=== PATIENT | female | born 1940 | race African-American/Black ===

== ENCOUNTER → 2016-04-17 | Outpatient (CLI) | payer MEDICARE ==
[2016-04-17 11:35] LABS: ABSOLUTE BASOPHILS # (AUTO) 0.1 10^3/uL (0.0-0.2); ABSOLUTE EOSINOPHILS # (AUTO) 0.2 10^3/uL (0.0-0.6); ABSOLUTE LYMPHOCYTES (AUTO) 0.5 10^3/uL (0.5-4.7); ABSOLUTE MONOCYTES (AUTO) 0.4 10^3/uL (0.1-1.4); ABSOLUTE NEUT (AUTO) 2.6 10^3/uL (1.7-8.2); BASOPHILS % (AUTO) 1.8 % (0-2); EOSINOPHILS % (AUTO) 5.6 % (0-6); HEMATOCRIT 35.9 % (36.0-47.0); HEMOGLOBIN 11.9 g/dL (12.0-15.5); HGB HCT DIFFERENCE -0.2; LYMPHOCYTES % (AUTO) 14.4 % (13-45); MEAN CORPUSCULAR HEMOGLOBIN 29.3 pg (27.0-33.4); MEAN CORPUSCULAR HGB CONC 33.3 g/dL (32.0-36.0); MEAN CORPUSCULAR VOLUME 88 fl (80-97); MONOCYTES % (AUTO) 9.9 % (3-13); RED BLOOD COUNT 4.08 10^6/uL (3.72-5.28); RED CELL DISTRIBUTION WIDTH 16.4 % (11.5-14.0); SEGMENTED NEUTROPHILS % (AUTO) 68.3 % (42-78); WHITE BLOOD COUNT 3.7 10^3/uL (4.0-10.5)
[2016-04-17 11:56] LABS: ALBUMIN 4.3 g/dL (3.5-5.0); ANION GAP 13 (5-19); BLOOD UREA NITROGEN 58 mg/dL (7-20); CALCIUM 9.8 mg/dL (8.4-10.2); CARBON DIOXIDE 22 mmol/L (22-30); CHLORIDE 106 mmol/L (98-107); CREATININE RESULT 1.89 mg/dL (0.52-1.25); GLUCOSE 98 mg/dL (75-110); PHOSPHORUS 4.7 mg/dL (2.5-4.5); POTASSIUM 4.5 mmol/L (3.6-5.0); SODIUM 141.2 mmol/L (137-145)
== END ==
LOC: OD 10:46
PROVIDERS: ATTEND Internal Medicine Nephrology
DX: N18.3 Chronic kidney disease, stage 3 (moderate) (principal); D50.9 Iron deficiency anemia, unspecified; N25.81 Secondary hyperparathyroidism of renal origin; E53.8 Deficiency of other specified B group vitamins
CPT/HCPCS: 36415; 80048; 82040; 82306; 82570; 82607; 82728; 83540; 83550; 83970; 84100; 84156; 85025

== ENCOUNTER → 2016-09-19 | Outpatient (CLI) | payer MEDICARE, OTHER ==
[2016-09-19 09:46] LABS: ABSOLUTE BASOPHILS # (AUTO) 0.1 10^3/uL (0.0-0.2); ABSOLUTE EOSINOPHILS # (AUTO) 0.3 10^3/uL (0.0-0.6); ABSOLUTE LYMPHOCYTES (AUTO) 0.8 10^3/uL (0.5-4.7); ABSOLUTE MONOCYTES (AUTO) 0.4 10^3/uL (0.1-1.4); ABSOLUTE NEUT (AUTO) 2.5 10^3/uL (1.7-8.2); EOSINOPHILS % (AUTO) 6.8 % (0-6); HEMATOCRIT 34.7 % (36.0-47.0); HEMOGLOBIN 11.5 g/dL (12.0-15.5); HGB HCT DIFFERENCE -0.2; LYMPHOCYTES % (AUTO) 20.3 % (13-45); MEAN CORPUSCULAR HEMOGLOBIN 27.9 pg (27.0-33.4); MEAN CORPUSCULAR HGB CONC 33.1 g/dL (32.0-36.0); MEAN CORPUSCULAR VOLUME 84 fl (80-97); MONOCYTES % (AUTO) 10.8 % (3-13); RED BLOOD COUNT 4.11 10^6/uL (3.72-5.28); RED CELL DISTRIBUTION WIDTH 16.4 % (11.5-14.0); SEGMENTED NEUTROPHILS % (AUTO) 60.1 % (42-78); WHITE BLOOD COUNT 4.1 10^3/uL (4.0-10.5)
[2016-09-19 10:10] LABS: ANION GAP 15 (5-19); BLOOD UREA NITROGEN 83 mg/dL (7-20); CALCIUM 9.4 mg/dL (8.4-10.2); CARBON DIOXIDE 20 mmol/L (22-30); CHLORIDE 105 mmol/L (98-107); CREATININE RESULT 2.21 mg/dL (0.52-1.25); GLUCOSE 54 mg/dL (75-110); POTASSIUM 3.8 mmol/L (3.6-5.0); SODIUM 139.9 mmol/L (137-145)
[2016-09-19 11:11] LABS: URINE CREATININE 54.9 mg/dL (15-278); URINE PROTEIN 34.4 mg/dL (<12)
[2016-09-20 07:36] LABS: VITAMIN D 25-HYDROXY 36.8 ng/mL (30.0-100.0)
== END ==
LOC: OD 08:31
PROVIDERS: ATTEND Internal Medicine Nephrology
DX: N18.3 Chronic kidney disease, stage 3 (moderate) (principal); D63.1 Anemia in chronic kidney disease; E55.9 Vitamin D deficiency, unspecified; N25.81 Secondary hyperparathyroidism of renal origin
CPT/HCPCS: 36415; 80048; 82306; 82570; 82607; 83970; 84156; 85025

== ENCOUNTER → 2016-10-01 | Outpatient (CLI) | payer MEDICARE, OTHER ==
[2016-10-01 10:23] LABS: ABSOLUTE BASOPHILS # (AUTO) 0.1 10^3/uL (0.0-0.2); ABSOLUTE EOSINOPHILS # (AUTO) 0.2 10^3/uL (0.0-0.6); ABSOLUTE LYMPHOCYTES (AUTO) 0.7 10^3/uL (0.5-4.7); ABSOLUTE MONOCYTES (AUTO) 0.4 10^3/uL (0.1-1.4); ABSOLUTE NEUT (AUTO) 2.5 10^3/uL (1.7-8.2); BASOPHILS % (AUTO) 1.8 % (0-2); EOSINOPHILS % (AUTO) 5.1 % (0-6); HEMATOCRIT 34.7 % (36.0-47.0); HEMOGLOBIN 11.7 g/dL (12.0-15.5); HGB HCT DIFFERENCE 0.4; LYMPHOCYTES % (AUTO) 18.5 % (13-45); MEAN CORPUSCULAR HEMOGLOBIN 29.1 pg (27.0-33.4); MEAN CORPUSCULAR HGB CONC 33.9 g/dL (32.0-36.0); MEAN CORPUSCULAR VOLUME 86 fl (80-97); MONOCYTES % (AUTO) 10.4 % (3-13); RED BLOOD COUNT 4.03 10^6/uL (3.72-5.28); SEGMENTED NEUTROPHILS % (AUTO) 64.2 % (42-78); WHITE BLOOD COUNT 3.9 10^3/uL (4.0-10.5)
[2016-10-01 10:29] LABS: ALANINE AMINOTRANSFERASE 18 U/L (9-52); ALBUMIN 4.2 g/dL (3.5-5.0); ALKALINE PHOSPHATASE 76 U/L (38-126); ANION GAP 14 (5-19); ASPARTATE AMINO TRANSFERASE 18 U/L (14-36); BILIRUBIN,DIRECT 0.5 mg/dL (0.0-0.4); BILIRUBIN,TOTAL 0.7 mg/dL (0.2-1.3); BLOOD UREA NITROGEN 80 mg/dL (7-20); CALCIUM 9.5 mg/dL (8.4-10.2); CARBON DIOXIDE 20 mmol/L (22-30); CHLORIDE 106 mmol/L (98-107); Direct HDL 53 mg/dL (>40); GLUCOSE 94 mg/dL (75-110); POTASSIUM 4.3 mmol/L (3.6-5.0); TOTAL PROTEIN 7.5 g/dL (6.3-8.2); TRIGLYCERIDES 81 mg/dL (<150)
[2016-10-01 10:40] LABS: DIRECT LDL 81 mg/dL (<100)
[2016-10-03 11:39] LABS: CREATININE URINE 38.9 mg/dL (Not Estab.); MICROALBUMIN URINE 171.9 ug/mL (Not Estab.)
== END ==
LOC: OD 08:33
PROVIDERS: ATTEND Internal Medicine
DX: E11.9 Type 2 diabetes mellitus without complications (principal); I12.9 Hypertensive chronic kidney disease with stage 1 through stage 4 chronic kidney disease, or unspecified chronic kidney disease; N18.3 Chronic kidney disease, stage 3 (moderate); E78.5 Hyperlipidemia, unspecified; I25.10 Atherosclerotic heart disease of native coronary artery without angina pectoris; Z79.899 Other long term (current) drug therapy
CPT/HCPCS: 36415; 80053; 80061; 82043; 82306; 82570; 83036; 84443; 85025

== ENCOUNTER 2016-11-04 16:46 | Inpatient (IN) | payer MEDICARE ==
[2016-11-04] MEDS ORDERED: NORMAL SALINE 1000 ML 1,000 ML IV ONE ×2 (18:10→20:12)
[2016-11-04 18:55] LABS: ABSOLUTE BASOPHILS # (AUTO) 0.1 10^3/uL (0.0-0.2); ABSOLUTE EOSINOPHILS # (AUTO) 0.2 10^3/uL (0.0-0.6); ABSOLUTE LYMPHOCYTES (AUTO) 1.1 10^3/uL (0.5-4.7); ABSOLUTE MONOCYTES (AUTO) 0.8 10^3/uL (0.1-1.4); ABSOLUTE NEUT (AUTO) 4.8 10^3/uL (1.7-8.2); BASOPHILS % (AUTO) 0.9 % (0-2); EOSINOPHILS % (AUTO) 2.3 % (0-6); HEMATOCRIT 40.3 % (36.0-47.0); HEMOGLOBIN 13.8 g/dL (12.0-15.5); HGB HCT DIFFERENCE 1.1; LYMPHOCYTES % (AUTO) 15.3 % (13-45); MEAN CORPUSCULAR HEMOGLOBIN 29.4 pg (27.0-33.4); MEAN CORPUSCULAR HGB CONC 34.2 g/dL (32.0-36.0); MEAN CORPUSCULAR VOLUME 86 fl (80-97); MONOCYTES % (AUTO) 11.2 % (3-13); RED BLOOD COUNT 4.69 10^6/uL (3.72-5.28); RED CELL DISTRIBUTION WIDTH 16.1 % (11.5-14.0); SEGMENTED NEUTROPHILS % (AUTO) 70.3 % (42-78); WHITE BLOOD COUNT 6.9 10^3/uL (4.0-10.5)
[2016-11-04 19:05] LABS: PROTHROMBIN TIME 18.2 SEC (11.4-15.4)
[2016-11-04 19:06] LABS: PARTIAL THROMBOPLASTIN TIME 29.2 SEC (23.5-35.8)
--- NOTE | 2016-11-04 19:08 | RADIOLOGY REPORT (SQ) ---
EXAM DESCRIPTION: CT HEAD WITHOUT COMPLETED DATE/TIME: 11/04/2016 6:51 pm REASON FOR STUDY: ams knee pain fall COMPARISON: 01/22/2016. TECHNIQUE: Axial images acquired through the brain without intravenous contrast. Images reviewed wi th bone, brain and subdural windows. Images stored on PACS. All CT scanners at this facility use dose modulation, iterative reconstruction, and/or weight based d osing when appropriate to reduce radiation dose to as low as reasonably achievable (ALARA). [facility]: Dose Right [facility]: CareDose [facility]: Dose Right [facility]: Teradose 4D [facility]: [facility] RADIATION DOSE: Up-to-date CT equipment and radiation dose reduction techniques were employed. CTDIv ol: 64.6 mGy. DLP: 1292 mGy-cm.mGy. LIMITATIONS: None. FINDINGS: VENTRICLES: Prominent. CEREBRUM: No masses. No hemorrhage. No midline shift. Areas of low density in the white matter mos t likely due to chronic micro-vascular ischemic change. No evidence for acute infarction. CEREBELLUM: No masses. No hemorrhage. No alteration of density. No evidence for acute infarction. EXTRAAXIAL SPACES: Age-related involutional change. No fluid collections. No masses. ORBITS AND GLOBE: No intra- or extraconal masses. Normal contour of globe without masses. CALVARIUM: No fracture. PARANASAL SINUSES: No fluid or mucosal thickening. SOFT TISSUES: No mass or hematoma. OTHER: No other significant finding. IMPRESSION: CHRONIC CHANGES OF ATROPHY AND MICROVASCULAR ISCHEMIA. NO ACUTE PROCESS. TECHNICAL DOCUMENTATION: JOB ID: [id number] Quality ID # [id number]: Final reports with documentation of one or more dose reduction techniques (e.g., Au tomated exposure control, adjustment of the mA and/or kV according to patient size, use of iterative reconstruction technique) 2010 [employer]- All Rights Reserved
[2016-11-04 19:10] LABS: ALANINE AMINOTRANSFERASE 20 U/L (9-52); ALBUMIN 4.6 g/dL (3.5-5.0); ALKALINE PHOSPHATASE 75 U/L (38-126); ASPARTATE AMINO TRANSFERASE 27 U/L (14-36); BILIRUBIN,DIRECT 0.7 mg/dL (0.0-0.4); BILIRUBIN,TOTAL 0.9 mg/dL (0.2-1.3); BLOOD UREA NITROGEN 89 mg/dL (7-20); CALCIUM 10.1 mg/dL (8.4-10.2); CREATININE RESULT 2.68 mg/dL (0.52-1.25); GLUCOSE 59 mg/dL (75-110); POTASSIUM 3.3 mmol/L (3.6-5.0); TOTAL PROTEIN 7.9 g/dL (6.3-8.2)
[2016-11-04 19:13] LABS: AMORPHOUS SEDIMENT,URINE TRACE /HPF; APPEARANCE,URINE CLOUDY; BILIRUBIN,URINE NEGATIVE (NEGATIVE); GLUCOSE, URINE NEGATIVE (NEGATIVE); KETONES,URINE NEGATIVE (NEGATIVE); LEUKOCYTE ESTERASE,URINE LARGE (NEGATIVE); NITRITE,URINE NEGATIVE (NEGATIVE); PROTEIN,URINE NEGATIVE (NEGATIVE); URINE SPECIFIC GRAVITY 1.008; UROBILINOGEN,URINE NEGATIVE mg/dL (<2.0)
[2016-11-04] MEDS ORDERED: CEFTRIAXONE 1 GM/D5W RTU 1 GM/50 ML RTUPB IV ONE (19:17)
--- NOTE | 2016-11-04 19:17 | RADIOLOGY REPORT (SQ) ---
EXAM DESCRIPTION: CHEST SINGLE VIEW COMPLETED DATE/TIME: 11/04/2016 7:05 pm REASON FOR STUDY: ams knee pain fall COMPARISON: 02/14/2016. NUMBER OF VIEWS: One view. TECHNIQUE: Single frontal radiographic view of the chest acquired. LIMITATIONS: None. FINDINGS: LUNGS AND PLEURA: No opacities, masses or pneumothorax. No pleural effusion. MEDIASTINUM AND HILAR STRUCTURES: No masses. Contour normal. HEART AND VASCULAR STRUCTURES: Heart enlarged without failure. Normal vasculature. BONES: No acute findings. Chronic changes in the spine and shoulders. HARDWARE: None in the chest. OTHER: No other significant finding. IMPRESSION: HEART ENLARGED WITHOUT FAILURE. NO OTHER SIGNIFICANT RADIOGRAPHIC FINDING IN THE CHEST. TECHNICAL DOCUMENTATION: JOB ID: [id number] [employer]- All Rights Reserved
--- NOTE | 2016-11-04 19:18 | RADIOLOGY REPORT (SQ) ---
EXAM DESCRIPTION: KNEE LEFT 3 VIEWS COMPLETED DATE/TIME: 11/04/2016 7:05 pm REASON FOR STUDY: ams knee pain fall COMPARISON: 11/22/2015. NUMBER OF VIEWS: Two views. TECHNIQUE: AP and lateral radiographic images acquired of the left knee. LIMITATIONS: None. FINDINGS: MINERALIZATION: Normal. BONES: No acute fracture or dislocation. Intact prosthesis. No worrisome bone lesions. JOINT: No effusion. SOFT TISSUES: No soft tissue swelling. No radio-opaque foreign body. OTHER: No other significant finding. IMPRESSION: INTACT KNEE PROSTHESIS. NO ACUTE FINDINGS. TECHNICAL DOCUMENTATION: JOB ID: [id number] [employer]- All Rights Reserved
[2016-11-04 19:19] LABS: URINE BARBITURATES SCREEN NEGATIVE; URINE METHADONE SCREEN NEGATIVE; URINE OPIATES LOW NEGATIVE; URINE PHENCYCLIDINE SCREEN NEGATIVE
[2016-11-04 19:19] LABS: ANION GAP 19 (5-19); CARBON DIOXIDE 18 mmol/L (22-30); CHLORIDE 103 mmol/L (98-107); SODIUM 139.5 mmol/L (137-145)
--- NOTE | 2016-11-04 20:12 | ER Document Report ---
ED General - General Chief Complaint: Anxiety Stated Complaint: ANIEXTY Time Seen by Provider: 11/04/16 17:41 TRAVEL OUTSIDE OF THE [place] IN LAST 30 DAYS: No - HPI Patient complains to provider of: Altered mental status Notes: Patient coming in for evaluation of altered mental status. Patient has a history of dementia. According to family members at bedside who themselves are also poor historian patient has not been acting like herself over the last few days. Patient has not been compliant with her medication regimen consisting of Namenda blood pressure medications and antibiotic for urinary tract infection. Patient's current PCP is Dr. Cook. On my evaluation patient is crying requesting to go home. Patient does understand she is in the hospital however she is now alert to time or circumstances. - Related Data Allergies/Adverse Reactions: grapefruit [Grapefruit] Allergy (Intermediate, Verified 11/04/16 17:18) Rash, Swelling strawberry [[place]] Allergy (Intermediate, Verified 11/04/16 17:18) Rash, Swelling oxycodone [Oxycodone] Adverse Reaction (Intermediate, Verified 11/04/16 17:18) Change in behavior Home Medications: Current Home Medications Amlodipine Besylate [Norvasc 10 mg Tablet] 10 mg PO DAILY 11/04/16 [History] Cholecalciferol (Vitamin D3) [Vitamin D3 2000 unit Tablet] 2,000 units PO DAILY 11/04/16 [History] Citalopram Hydrobromide [Citalopram HBr] 10 mg PO DAILY 11/04/16 [History] Furosemide [Lasix 40 mg Tablet] 60 mg PO BID 11/04/16 [History] Hydralazine HCl 100 mg PO Q8 11/04/16 [History] Insulin Glargine,Hum.rec.anlog [Lantus Solostar] 25 units SQ QHS 11/04/16 [ History] Insulin Lispro [Humalog] See Protocol SQ AC 11/04/16 [History] Isosorbide Mononitrate [Imdur 60 mg Tablet.er] 60 mg PO DAILY 11/04/16 [History] Memantine HCl [Memantine HCl] 3 mg PO Q12 11/04/16 [History] Metoprolol Tartrate [Lopressor 50 mg Tablet] 25 mg PO Q12 11/04/16 [History] Omeprazole [Omeprazole] 20 mg PO DAILY 11/04/16 [History] Warfarin Sodium [Warfarin Sodium] 5 mg PO DAILY 11/04/16 [History] Past Medical History - Social History Smoking Status: Unknown if Ever Smoked Chew tobacco use (# tins/day): No Frequency of alcohol use: None Drug Abuse: None Family History: DM, Hypertension - Past Medical History Cardiac Medical History: Reports: Hx Atrial Fibrillation, Hx Congestive Heart Failure, Hx Heart Attack, Hx Hypercholesterolemia, Hx Hypertension Pulmonary Medical History: Denies: Hx Tuberculosis Endocrine Medical History: Reports: Hx Diabetes Mellitus Type 1, Hx Diabetes Mellitus Type 2 Renal/ Medical History: Reports: Hx End Stage Renal Disease GI Medical History: Reports: Hx Gastroesophageal Reflux Disease Musculoskeltal Medical History: Reports Hx Gout, Reports Hx Musculoskeletal Trauma Psychiatric Medical History: Reports: Hx Dementia, Hx Depression Past Surgical History: Reports: Hx Cholecystectomy, Hx Orthopedic Surgery - both knees, back - Immunizations Hx Diphtheria, Pertussis, Tetanus Vaccination: Yes Hx Pneumococcal Vaccination: 03/02/13 Review of Systems - Review of Systems -: Yes ROS unobtainable due to patient's medical condition - Dementia Physical Exam - Vital signs Vitals: Temp Pulse Resp BP Pulse Ox 98.2 F 65 18 134/56 H 100 11/04/16 17:40 11/04/16 17:40 11/04/16 17:40 11/04/16 17:40 11/04/16 17:40 Interpretation: Normal - General General appearance: Appears well, Alert - HEENT Head: Normocephalic, Atraumatic Eyes: Normal Pupils: PERRL - Respiratory Respiratory status: No respiratory distress Chest status: Nontender Breath sounds: Normal Chest palpation: Normal - Cardiovascular Rhythm: Regular Heart sounds: Normal auscultation Murmur: No - Abdominal Inspection: Normal Distension: No distension Bowel sounds: Normal Tenderness: Nontender Organomegaly: No organomegaly - Back Back: Normal, Nontender - Extremities General upper extremity: Normal inspection, Nontender, Normal color, Normal ROM , Normal temperature General lower extremity: Normal inspection, Nontender, Normal color, Normal ROM , Normal temperature, Normal weight bearing. No: Chase's sign - Neurological Neuro grossly intact: Yes Cognition: Confused Speech: Normal Motor strength normal: LUE, RUE, LLE, RLE Sensory: Normal - Psychological Associated symptoms: Normal affect, Normal mood - Skin Skin Temperature: Warm Skin Moisture: Dry Skin Color: Normal Course - Re-evaluation Re-evalutation: 11/04/16 23:00 Patient coming in for evaluation of altered mental status. Patient has a urinary tract infection patient's recent microbiology shows E. coli susceptible to ceftriaxone. Patient also has chronic renal insufficiency. Discussed with family members will admit the patient to the hospital staff. Discussed hospital staff agree with telemetry admission. - Vital Signs Vital signs: Temp Pulse Resp BP Pulse Ox 98.2 F 65 13 187/62 H 100 11/04/16 17:40 11/04/16 17:40 11/04/16 22:01 11/04/16 22:01 11/04/16 22:01 - Laboratory Result Diagrams: 11/04/16 18:10 11/04/16 18:10 Laboratory results interpreted by me: 11/04/16 11/04/16 11/04/16 18:09 18:10 18:10 RDW 16.1 H PT 18.2 H Potassium Carbon Dioxide BUN Creatinine Est GFR ( Amer) Est GFR (Non-Af Amer) Glucose Direct Bilirubin Ur Leukocyte Esterase LARGE H 11/04/16 18:10 RDW PT Potassium 3.3 L Carbon Dioxide 18 L BUN 89 H Creatinine 2.68 H Est GFR ( Amer) 21 L Est GFR (Non-Af Amer) 17 L Glucose 59 L Direct Bilirubin 0.7 H Ur Leukocyte Esterase Discharge - Discharge Clinical Impression: Acute encephalopathy, CKD (chronic kidney disease), stage III Dementia Qualifiers: Dementia type: unspecified type Dementia behavioral disturbance: without behavioral disturbance Qualified Code(s): F03.90 - Unspecified dementia without behavioral disturbance UTI (urinary tract infection) Qualifiers: Urinary tract infection type: site unspecified Condition: Good Disposition: ADMITTED INPATIENT Admitting Provider: [facility] Unit Admitted: Telemetry
--- NOTE | 2016-11-04 21:02 | RADIOLOGY REPORT (SQ) ---
EXAM DESCRIPTION: CHEST SINGLE VIEW COMPLETED DATE/TIME: 11/04/2016 8:52 pm REASON FOR STUDY: incr confusion COMPARISON: 11/04/2016. NUMBER OF VIEWS: One view. TECHNIQUE: Single frontal radiographic view of the chest acquired. LIMITATIONS: None. FINDINGS: LUNGS AND PLEURA: No opacities, masses or pneumothorax. No pleural effusion. MEDIASTINUM AND HILAR STRUCTURES: No masses. Contour normal. HEART AND VASCULAR STRUCTURES: Heart enlarged without failure. Normal vasculature. BONES: No acute findings. Chronic changes in the spine and shoulders. HARDWARE: None in the chest. OTHER: No other significant finding. IMPRESSION: HEART ENLARGED WITHOUT FAILURE. NO OTHER SIGNIFICANT RADIOGRAPHIC FINDING IN THE CHEST. TECHNICAL DOCUMENTATION: JOB ID: [id number] [employer]- All Rights Reserved
[2016-11-04 21:15] LABS: ADD ON TESTING BLD IN LAB ACKNOWLEDGE
[2016-11-04 21:29] LABS: MAGNESIUM 2.1 mg/dL (1.6-2.3)
[2016-11-04] MEDS ORDERED: GLUCAGON,HUMAN RECOMB 1 MG INJ IM PRN (21:51)
[2016-11-04] MEDS ORDERED: DEXTROSE 50%-WATER 25 GM/50 ML DISP.SYRIN IV PRN ×2 (21:51)
[2016-11-04] MEDS ORDERED: DEXTROSE 40% GEL 15 GM TUBE PO PRN ×2 (21:51)
[2016-11-04] MEDS ORDERED: RINGERS SOLUTION,LACTATED 1,000 ML IV PRN (21:54)
[2016-11-04] MEDS ORDERED: PROMETHAZINE HCL 25 MG TABLET PO PRN (21:57)
--- NOTE | 2016-11-04 22:42 | PDOC H&P ---
History of Present Illness Admission Date/PCP: 11/04/16 21:09 Dr. Cook Nephrology Cardiology Patient complains of: Increased confusion, decreased p.o. intake History of Present Illness: GEOFFREY PULIDO is a 76 year old -Luxembourger female with known underlying dementia, along with hypertension, atrial fibrillation, on Coumadin for same, history of congestive heart failure but no evidence of same on 2016 echocardiogram report, previous heart attack, prior stroke, with no known underlying residual aftereffects, type 1 diabetes mellitus, and depression, without suicidal or homicidal ideation, who presents to the emergency room for evaluation of above complaints. Patient has been discussed with emergency room physician who evaluated the patient. Patient is oriented to the fact that she is in the hospital, not sure which one, but is not sure why she is here, and was not sure about the year. She is thus able to provide no history whatsoever in terms of acute or chronic events, review of systems, personal habits, family history, etc. , [id number], and daughter are present, with not the best historian himself. Old inpatient records are reviewed. Reportedly a 3-4 day history of decreased p.o. intake, increased confusion, and generalized weakness. Fallen twice, once getting out of the bathtub, and once in the hallway, but by report, no significant fall either time. Normally wanders in the halls at night. No fever or chills, nausea or vomiting. He has not been taking her medications over the last several days. Reportedly treated for urinary tract infection early last month, with culture results noted. not sure whether she received oral or intravenous antibiotics. Again, he is not the best historian himself. does state that patient has been passing somewhat hard dry stools lately. Patient was ambulating earlier today, pushing a wheelchair for balance. Dictation via voice recognition software. Laboratory results are listed in [employer] and are reviewed. X-ray summary results are listed below, with full report(s) reviewed. . Social history/personal habits: . Lives with . Chews tobacco. No alcohol or illicit drug use. Allergies/adverse reactions are listed in [employer] and are reviewed. Home medications initially autopopulated into M87 may not accurately reflect patient's true medications, dosages, and/or frequencies. mechanical maintenance technician to reconcile medications. Unfortunately, patient not able to provide any information related to medications/dosages/frequencies. REVIEW OF SYSTEMS: Constitutional: See History and Present illness. Eyes: Wears glasses. ENT: No swallowing problems or complaints. Partial hearing loss. Pulmonary: No current complaints. Cardiovascular: No current complaints, including chest pain. Gastrointestinal: See History and Present illness. Skin: No current complaints, including rashes. Hematologic: Easy bruising. Neurologic: No current complaints, including numbness or tingling. Musculoskeletal: complaining of left knee pain earlier. Does not seem to be bothering her much now. Psychiatric: Mild depression. No suicidal or homicidal ideation. Endocrine: No current complaints, including polyuria. Genitourinary: No current complaints, including dysuria. PHYSICAL EXAMINATION: 5 feet 4 inches tall. 64.3 kg. BMI 24.3 kg/m. 99% saturation on room air. Blood pressure 186/73. Pulse 70 and regular. Respirations are 13 and unlabored. Temperature 98.2. Well-nourished well-developed -Luxembourger female appearing a number of years younger than her stated age. Awake and alert. Rather anxious at times, and intermittently somewhat tearful. No sun agitation. Skin is warm and dry. No grossly obvious evidence of rash in areas of skin examined. No subcutaneous nodules palpated. ENT: Hearing grossly normal to normal conversation. Tongue midline on protrusion pink and slightly moist. Eyes: No scleral icterus. Pupils equal and reactive to light at 4 mm. [place] conjunctivae. No raccoon eyes. Neck is supple and nontender to gentle active range of motion and palpation. Midline trachea. No palpable thyroid nodule mass enlargement or tenderness. Lymphatic: No palpable cervical or clavicular nodes. Neck and lymphatic exams limited by patient body habitus. Psychiatric: Cannot be adequately evaluated due to her current status. See above comments. Lungs: Auscultation reveals clear and equal breath sounds bilaterally. No use of accessory respiratory muscles. Cardiovascular: Heart regular rate and rhythm, without gallop or rub. No carotid or abdominal aortic bruits. No ankle or pedal edema. Faintly palpable dorsalis pedis pulses. 1/6 holosystolic ejection murmur heard at cardiac apex. Abdomen:soft nontender with positive bowel sounds. No upper abdominal mass or organomegaly palpated. Extremities: Hands and feet are warm and dry. No calf tenderness to compression. No grossly obvious visual evidence of calf swelling. Gentle manipulation of upper and lower extremities fails to reveal any obvious evidence of injury or instability to involved major joints, although some slight stiffness on manipulation of knees and hips. Neurologic: Patellar reflexes absent. Absent Babinski. Light touch cannot be accurately determined due to her mental status. Cranial Nerves II through XII are grossly intact with the exception that patient does not seem to understand instructions for extraocular movement check or insufflation of cheeks or smiling ; patient scowls somewhat instead. Motor function of major muscle groups upper extremities 5 over 5 and symmetric. Moves toes, and is able to slowly straight leg lift both legs without undue difficulty; does not seem to understand instructions for bending thighs at hips. No nystagmus. Past Medical History Past Medical History: Information per family and current/old records. 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 Denies: Ischemic CVA, Seizures Endocrine Medical History: Reports: Diabetes Mellitus Type 1 Denies: Diabetes Mellitus Type 2, Hyperthyroidism, Hypothyroidism Renal/ Medical History: Reports: Chronic Kidney Disease GI Medical History: Denies: Cirrhosis, Gastroesophageal Reflux Disease, Hepatitis, Peptic Ulcer Disease Musculoskeltal Medical History: Denies: Arthritis Skin Medical History: Reports: None Psychiatric Medical History: Reports: Dementia, Depression, Tobacco Dependency, Other - Chews tobacco Denies: Alcohol Dependency, General Anxiety Disorder Hematology: Reports: Anemia, Other - Easy bruising Infectious Medical History: Denies: Hepatitis B, Hepatitis C Past Surgical History Past Surgical History: Information per family and current/old records. Past Surgical History: Reports: Cholecystectomy, Orthopedic Surgery - both knees , back Social History Information Source: Relative - and daughter, Emergency Med Personnel, [facility] Records Lives with: Spouse/Significant other Smoking Status: Unknown if Ever Smoked - Chews tobacco Frequency of Alcohol Use: None Hx Recreational Drug Use: No Drugs: None Hx Prescription Drug Abuse: No - Advance Directive Resuscitation Status: Full Code Surrogate healthcare decision maker:: ; service advocate contact is daughter Jennifer Nolasco, Family History Family History: DM, Hypertension Parental Family History Reviewed: Yes - Parents of diabetic complications. Children Family History Reviewed: Yes - Daughter is diabetic Sibling(s) Family History Reviewed.: Yes - Uncertain health status Medication/Allergy Home Medications: Amlodipine Besylate [Norvasc 10 mg Tablet] 10 mg PO DAILY 11/04/16 Cholecalciferol (Vitamin D3) [Vitamin D3 2000 unit Tablet] 2,000 units PO DAILY 11/04/16 Citalopram Hydrobromide [Citalopram HBr] 10 mg PO DAILY 11/04/16 Furosemide [Lasix 40 mg Tablet] 60 mg PO BID 11/04/16 Hydralazine HCl 100 mg PO Q8 11/04/16 Insulin Glargine,Hum.rec.anlog [Lantus Solostar] 25 units SQ QHS 11/04/16 Insulin Lispro [Humalog] See Protocol SQ AC 11/04/16 Isosorbide Mononitrate [Imdur 60 mg Tablet.er] 60 mg PO DAILY 11/04/16 Memantine HCl [Memantine HCl] 5 mg PO Q12 11/04/16 Metoprolol Tartrate [Lopressor 50 mg Tablet] 25 mg PO Q12 11/04/16 Omeprazole [Omeprazole] 20 mg PO DAILY 11/04/16 Warfarin Sodium [Warfarin Sodium] 5 mg PO DAILY 11/04/16 Allergies/Adverse Reactions: grapefruit [Grapefruit] Allergy (Intermediate, Verified 11/04/16 17:18) Rash, Swelling strawberry [[place]] Allergy (Intermediate, Verified 11/04/16 17:18) Rash, Swelling oxycodone [Oxycodone] Adverse Reaction (Intermediate, Verified 11/04/16 17:18) Change in behavior Physical Exam Vital Signs: Temp Pulse Resp BP Pulse Ox 98.2 F 65 13 187/62 H 100 11/04/16 17:40 11/04/16 17:40 11/04/16 22:01 11/04/16 22:01 11/04/16 22:01 Results Impressions: Chest X-Ray 11/04/16 18:09 IMPRESSION: HEART ENLARGED WITHOUT FAILURE. NO OTHER SIGNIFICANT RADIOGRAPHIC FINDING IN THE CHEST. Head CT 11/04/16 18:09 IMPRESSION: CHRONIC CHANGES OF ATROPHY AND MICROVASCULAR ISCHEMIA. NO ACUTE PROCESS. Knee X-Ray 11/04/16 18:09 IMPRESSION: INTACT KNEE PROSTHESIS. NO ACUTE FINDINGS. Assessment & Plan - Diagnosis (1) Diabetes mellitus type 1 Qualifiers: Diabetes mellitus complication status: without complication Qualified Code( s): E10.9 - Type 1 diabetes mellitus without complications Is this a current diagnosis for this admission?: Yes Plan: Diabetic cardiac prerenal diet. Accu-Cheks with appropriate sliding scale coverage. Resume home medications as appropriate once these have been determined and reviewed. (2) Acute encephalopathy Is this a current diagnosis for this admission?: Yes Plan: Likely secondary to combination of urinary tract infection, and perhaps an element of mild dehydration, with decreased p.o. intake over the last 3 days. 1 more liter of IV fluid. Dietary consult. Rocephin. Family understands patient's baseline confusion may very well worsen while she is in the hospital. I have strongly encouraged patient not to get out of bed without notifying staff , to avoid a fall with injury. Have encouraged family to remind patient of same. Patient is full code. Knee high SCDs for DVT prophylaxis; with patient on Coumadin, no need for heparin or Lovenox. Impression and plans were discussed with family, all of whom concur. Time spent in evaluation and management of patient: 85 minutes. (3) Dementia Qualifiers: Dementia type: unspecified type Dementia behavioral disturbance: without behavioral disturbance Qualified Code(s): F03.90 - Unspecified dementia without behavioral disturbance Is this a current diagnosis for this admission?: Yes Plan: Resume home medications as appropriate once these have been determined and reviewed. (4) Hypokalemia Is this a current diagnosis for this admission?: Yes Plan: Potassium replacement, with follow-up chemistry. (5) UTI (urinary tract infection) Qualifiers: Urinary tract infection type: site unspecified Is this a current diagnosis for this admission?: Yes Plan: Blood and urine cultures. Rocephin. Culture results from earlier last month reviewed. (6) Constipation Qualifiers: Constipation type: unspecified constipation type Qualified Code(s): K59.00 - Constipation, unspecified Is this a current diagnosis for this admission?: Yes Plan: Stool softener. Hopefully will improve with increased p.o. intake, also. (7) Chronic kidney disease, stage 4 (severe) Is this a current diagnosis for this admission?: Yes (8) Hypertension Qualifiers: Hypertension type: essential hypertension Qualified Code(s): I10 - Essential (primary) hypertension Is this a current diagnosis for this admission?: Yes Plan: Resume home medications as appropriate once these have been determined and reviewed. (9) Anticoagulated on Coumadin Is this a current diagnosis for this admission?: Yes Plan: Resume home medications as appropriate once these have been determined and reviewed. (10) Atrial fibrillation Qualifiers: Atrial fibrillation type: chronic Qualified Code(s): I48.2 - Chronic atrial fibrillation Is this a current diagnosis for this admission?: Yes Plan: Resume home medications as appropriate once these have been determined and reviewed. - Time Time Spent: Greater than 70 Minutes Medications reviewed and adjusted accordingly: Yes Anticipated discharge: Home Within: within 72 hours - Inpatient Certification Based on my medical assessment, after consideration of the patient's comorbidities, presenting symptoms, or acuity I expect that the services needed warrant INPATIENT care.: Yes I certify that my determination is in accordance with my understanding of Medicare's requirements for reasonable and necessary INPATIENT services [42 CFR 412.3e].: Yes Medical Necessity: Significant Comorbidiites Make Outpatient Treatment Too Risky , Need Close Monitoring Due to Risk of Patient Decompensation, Need For IV Fluids, Need For Continuous Telemetry Monitoring, Need for IV Antibiotics Post Hospital Care: D/C or Transfer Summary
[2016-11-04] MEDS: POTASSIUM CHLORIDE 20 MEQ/15 ML UDCUP PO SCH (23:26)
[2016-11-05] MEDS: POTASSIUM CHLORIDE 20 MEQ/15 ML UDCUP PO SCH (00:52)
[2016-11-05] MEDS: ACETAMINOPHEN 325 MG TABLET PO PRN (03:10)
[2016-11-05] MEDS: HYDRALAZINE HCL 50 MG TABLET PO SCH ×2 (05:06→13:31)
[2016-11-05 07:18] LABS: ABSOLUTE BASOPHILS # (AUTO) 0.1 10^3/uL (0.0-0.2); ABSOLUTE EOSINOPHILS # (AUTO) 0.2 10^3/uL (0.0-0.6); ABSOLUTE LYMPHOCYTES (AUTO) 0.7 10^3/uL (0.5-4.7); ABSOLUTE MONOCYTES (AUTO) 0.6 10^3/uL (0.1-1.4); ABSOLUTE NEUT (AUTO) 4.2 10^3/uL (1.7-8.2); BASOPHILS % (AUTO) 0.9 % (0-2); EOSINOPHILS % (AUTO) 3.3 % (0-6); HEMATOCRIT 39.9 % (36.0-47.0); HEMOGLOBIN 13.5 g/dL (12.0-15.5); HGB HCT DIFFERENCE 0.6; MEAN CORPUSCULAR HEMOGLOBIN 29.1 pg (27.0-33.4); MEAN CORPUSCULAR HGB CONC 33.7 g/dL (32.0-36.0); MEAN CORPUSCULAR VOLUME 86 fl (80-97); MONOCYTES % (AUTO) 10.2 % (3-13); RED BLOOD COUNT 4.62 10^6/uL (3.72-5.28); SEGMENTED NEUTROPHILS % (AUTO) 72.6 % (42-78); WHITE BLOOD COUNT 5.7 10^3/uL (4.0-10.5)
[2016-11-05 07:25] LABS: PROTHROMBIN TIME 20.2 SEC (11.4-15.4)
[2016-11-05 07:34] LABS: ANION GAP 15 (5-19); BLOOD UREA NITROGEN 75 mg/dL (7-20); CARBON DIOXIDE 21 mmol/L (22-30); CHLORIDE 106 mmol/L (98-107); CREATININE RESULT 1.75 mg/dL (0.52-1.25); GLUCOSE 102 mg/dL (75-110); POTASSIUM 3.1 mmol/L (3.6-5.0); SODIUM 142.1 mmol/L (137-145)
[2016-11-05] MEDS: ISOSORBIDE MONONITRATE 60 MG TAB.ER.24H PO SCH (08:29)
[2016-11-05] MEDS: AMLODIPINE BESYLATE 10 MG TABLET PO SCH (08:30)
[2016-11-05] MEDS: DOCUSATE SODIUM 100 MG CAPSULE PO SCH ×2 (08:31→17:40)
[2016-11-05] MEDS: METOPROLOL TARTRATE 50 MG TABLET PO SCH (08:32)
[2016-11-05] MEDS: CHOLECALCIFEROL (D3) 1,000 UNIT TABLET PO SCH (08:33)
--- NOTE | 2016-11-05 09:47 | PDOC PROGRESS REPORT ---
Subjective Progress Note for:: 11/05/16 Subjective:: Patient is seen on morning rounds. She is sitting on side of the bed working with physical therapy. She is presently tearful and anxious. She does not understand why she is here. She states her left knee hurts. There is presently no family in the room. She is unable to complete review of systems due to mentation. Physical Exam Vital Signs: Temp Pulse Resp BP Pulse Ox 97.5 F 60 18 188/52 H 97 11/05/16 08:06 11/05/16 08:06 11/05/16 08:06 11/05/16 08:06 11/05/16 08:06 Intake & Output 11/04/16 11/05/16 11/06/16 06:59 06:59 06:59 Intake Total 658 Balance 658 General appearance: PRESENT: mild distress, well-developed, well-nourished, other - due to anxiety and pain Head exam: PRESENT: atraumatic, normocephalic Eye exam: PRESENT: conjunctiva pink, EOMI, PERRLA. ABSENT: scleral icterus Ear exam: PRESENT: normal external ear exam Mouth exam: PRESENT: moist, tongue midline Neck exam: ABSENT: carotid bruit, JVD, lymphadenopathy, thyromegaly Respiratory exam: PRESENT: clear to auscultation amauri. ABSENT: rales, rhonchi, wheezes Cardiovascular exam: PRESENT: RRR. ABSENT: diastolic murmur, rubs, systolic murmur Pulses: PRESENT: normal dorsalis pedis pul Vascular exam: PRESENT: normal capillary refill GI/Abdominal exam: PRESENT: normal bowel sounds, soft. ABSENT: distended, guarding, mass, organolmegaly, rebound, tenderness Rectal exam: PRESENT: deferred Extremities exam: PRESENT: full ROM. ABSENT: calf tenderness, clubbing, pedal edema Musculoskeletal exam: PRESENT: ambulatory, tenderness - left knee Neurological exam: PRESENT: alert, altered, awake, oriented to person Psychiatric exam: PRESENT: anxious Skin exam: PRESENT: dry, intact, warm. ABSENT: cyanosis, rash Results Laboratory Results: 11/05/16 06:47 11/05/16 06:47 11/05/16 11/05/16 06:47 06:47 WBC 5.7 RBC 4.62 Hgb 13.5 Hct 39.9 MCV 86 MCH 29.1 MCHC 33.7 RDW 16.0 H Plt Count 170 Seg Neutrophils % 72.6 Lymphocytes % 13.0 Monocytes % 10.2 Eosinophils % 3.3 Basophils % 0.9 Absolute Neutrophils 4.2 Absolute Lymphocytes 0.7 Absolute Monocytes 0.6 Absolute Eosinophils 0.2 Absolute Basophils 0.1 Sodium 142.1 Potassium 3.1 L Chloride 106 Carbon Dioxide 21 L Anion Gap 15 BUN 75 H Creatinine 1.75 H Est GFR ( Amer) 34 L Est GFR (Non-Af Amer) 28 L Glucose 102 Calcium 10.0 Impressions: Chest X-Ray 11/04/16 18:09 IMPRESSION: HEART ENLARGED WITHOUT FAILURE. NO OTHER SIGNIFICANT RADIOGRAPHIC FINDING IN THE CHEST. Head CT 11/04/16 18:09 IMPRESSION: CHRONIC CHANGES OF ATROPHY AND MICROVASCULAR ISCHEMIA. NO ACUTE PROCESS. Knee X-Ray 11/04/16 18:09 IMPRESSION: INTACT KNEE PROSTHESIS. NO ACUTE FINDINGS. Assessment & Plan - Diagnosis (1) Acute encephalopathy Is this a current diagnosis for this admission?: Yes Plan: Baseline dementia exacerbated by UTI (2) Dementia Qualifiers: Dementia type: unspecified type Dementia behavioral disturbance: without behavioral disturbance Qualified Code(s): F03.90 - Unspecified dementia without behavioral disturbance Is this a current diagnosis for this admission?: Yes (3) Diabetes mellitus type 1 Qualifiers: Diabetes mellitus complication status: without complication Qualified Code( s): E10.9 - Type 1 diabetes mellitus without complications Is this a current diagnosis for this admission?: Yes (4) Hypokalemia Is this a current diagnosis for this admission?: Yes Plan: Replete and monitor (5) UTI (urinary tract infection) Qualifiers: Urinary tract infection type: site unspecified Is this a current diagnosis for this admission?: Yes Plan: Continue broad spectrum antibiotics monitor cultures (6) Constipation Qualifiers: Constipation type: unspecified constipation type Qualified Code(s): K59.00 - Constipation, unspecified Is this a current diagnosis for this admission?: Yes Plan: Continue cathartics (7) Acute on chronic renal failure Is this a current diagnosis for this admission?: Yes - Time Time Spent with patient: 25-34 minutes Critical Time spent with patient: 15-24 minutes Medications reviewed and adjusted accordingly: Yes Anticipated discharge: Home with Homehealth
[2016-11-05] MEDS ORDERED: (PENDING PHARMACY ID) (Citalopram Hydrobromide [Citalopram Hbr] 10 MG) PO SCH (10:00)
[2016-11-05] MEDS ORDERED: MEMANTINE HCL PO SCH ×2 (10:00)
[2016-11-05] MEDS ORDERED: LANSOPRAZOLE 15 MG TAB.RAP.DR PO SCH (10:00)
[2016-11-05] MEDS: POTASSIUM CHLORIDE 10 MEQ TABLET.SA PO SCH (10:18)
[2016-11-05] MEDS: CITALOPRAM HYDROBROMIDE 20 MG TABLET PO SCH (10:19)
[2016-11-05] MEDS: TRAMADOL HCL 50 MG TABLET PO PRN (10:27)
[2016-11-05] MEDS: NORMAL SALINE 1000 ML 1,000 ML IV PRN (11:07)
[2016-11-05] MEDS: ALPRAZOLAM 0.5 MG TABLET PO PRN (11:07)
[2016-11-05] MEDS ORDERED: DEXTROSE 50%-WATER SYRINGE 12.5 GM/25 ML DOSE IV PRN (14:46)
[2016-11-05] MEDS ORDERED: GLUCAGON,HUMAN RECOMB 1 MG INJ IM PRN (14:46)
[2016-11-05] MEDS ORDERED: DEXTROSE 40% GEL 15 GM TUBE PO PRN (14:46)
[2016-11-05] MEDS ORDERED: INSULIN LISPRO 100 UNIT/ML 3 ML VIAL SUBCUT PRN (14:46)
[2016-11-05] MEDS ORDERED: DEXTROSE 50%-WATER SYRINGE 25 GM/50 ML DOSE IV PRN (14:46)
[2016-11-05] MEDS ORDERED: DEXTROSE 40% GEL 15 GM TUBE X 2 PO PRN (14:46)
[2016-11-05] MEDS ORDERED: CEFTRIAXONE 1 GM/D5W RTU 1 GM/50 ML RTUPB IV SCH (18:00)
[2016-11-05] MEDS ORDERED: WARFARIN SODIUM 5 MG TABLET PO SCH (22:00)
[2016-11-06] MEDS: METOPROLOL TARTRATE 50 MG TABLET PO SCH ×4 (00:14→22:54)
[2016-11-06] MEDS: HYDRALAZINE HCL 50 MG TABLET PO SCH ×4 (00:14→22:54)
[2016-11-06] MEDS: POTASSIUM CHLORIDE 10 MEQ TABLET.SA PO SCH (00:15)
[2016-11-06] MEDS: INSULIN GLARGINE,HUM.REC.ANLOG 300 UNIT/3 ML INSULN.PEN SUBCUT SCH ×2 (00:18→23:03)
[2016-11-06] MEDS: NORMAL SALINE 1000 ML 1,000 ML IV PRN (00:31)
[2016-11-06] MEDS: PHARMACY COMMUNICATION ORDER MC SCH ×2 (01:12→22:00)
[2016-11-06] MEDS: ALPRAZOLAM 0.5 MG TABLET PO PRN (06:38)
[2016-11-06] MEDS: DOCUSATE SODIUM 100 MG CAPSULE PO SCH ×2 (09:07→18:35)
[2016-11-06] MEDS: CITALOPRAM HYDROBROMIDE 20 MG TABLET PO SCH (09:07)
[2016-11-06] MEDS: CHOLECALCIFEROL (D3) 1,000 UNIT TABLET PO SCH (09:07)
[2016-11-06] MEDS: LANSOPRAZOLE 15 MG TAB.RAP.DR PO SCH (09:08)
[2016-11-06] MEDS: AMLODIPINE BESYLATE 10 MG TABLET PO SCH (09:09)
[2016-11-06] MEDS: MEMANTINE HCL 10 MG TABLET PO SCH ×2 (09:09→22:54)
[2016-11-06] MEDS: ISOSORBIDE MONONITRATE 60 MG TAB.ER.24H PO SCH (09:10)
[2016-11-06 09:57] LABS: ANION GAP 11 (5-19); BLOOD UREA NITROGEN 60 mg/dL (7-20); CALCIUM 9.7 mg/dL (8.4-10.2); CARBON DIOXIDE 21 mmol/L (22-30); CHLORIDE 111 mmol/L (98-107); CREATININE RESULT 1.37 mg/dL (0.52-1.25); GLUCOSE 147 mg/dL (75-110); POTASSIUM 4.3 mmol/L (3.6-5.0); SODIUM 143.1 mmol/L (137-145)
[2016-11-06] MEDS ORDERED: CITALOPRAM HYDROBROMIDE 20 MG TABLET PO ONE (11:00)
[2016-11-06] MEDS ORDERED: LIDOCAINE 5% (700 MG) TRANSDERMAL ADH..PATCH TP SCH (11:00)
[2016-11-06] MEDS ORDERED: CITALOPRAM HYDROBROMIDE 20 MG TABLET PO SCH (11:00)
--- NOTE | 2016-11-06 11:21 | Physician Advisory Note ---
Physician Advisor ProgressNote .: Pursuant to the plan for [facility], I have reviewed the medical record for this patient. Physician Advisor Statement: Please consider documentin. "Suspect chronic diastolic CHF" - or "Chronic CHF w/preserved EF" [newer terminology] - (EF nl in 2016) 2. "CKD stage 3-4" 3. "acute metabolic acidosis, suspect due to ____" [? ARF] 4. "cerebrovascular atherosclerotic dz" Thanks! CK
[2016-11-06] MEDS ORDERED: CEFUROXIME 250 MG TABLET PO ONE (12:00)
--- NOTE | 2016-11-06 13:26 | PDOC PROGRESS REPORT ---
Subjective Progress Note for:: 11/06/16 Subjective:: Patient is seen on morning rounds. She is resting in bed. She is presently tearful and anxious. She does not understand why she is here. She states her left knee hurts. Her and friend is at bedside. She is unable to complete review of systems due to mentation. Physical Exam Vital Signs: Temp Pulse Resp BP Pulse Ox 98.6 F 67 20 175/63 H 93 11/06/16 07:38 11/06/16 07:38 11/06/16 07:38 11/06/16 07:38 11/06/16 07:38 Intake & Output 11/05/16 11/06/16 11/07/16 06:59 06:59 06:59 Intake Total 658 2495 Balance 658 2495 General appearance: PRESENT: no acute distress, well-developed, well-nourished Head exam: PRESENT: atraumatic, normocephalic Eye exam: PRESENT: conjunctiva pink, EOMI, PERRLA. ABSENT: scleral icterus Ear exam: PRESENT: normal external ear exam Mouth exam: PRESENT: moist, tongue midline Neck exam: ABSENT: carotid bruit, JVD, lymphadenopathy, thyromegaly Respiratory exam: PRESENT: clear to auscultation amauri. ABSENT: rales, rhonchi, wheezes Cardiovascular exam: PRESENT: RRR. ABSENT: diastolic murmur, rubs, systolic murmur Pulses: PRESENT: normal dorsalis pedis pul Vascular exam: PRESENT: normal capillary refill GI/Abdominal exam: PRESENT: normal bowel sounds, soft. ABSENT: distended, guarding, mass, organolmegaly, rebound, tenderness Extremities exam: PRESENT: full ROM. ABSENT: calf tenderness, clubbing, pedal edema Neurological exam: PRESENT: alert, altered, oriented to person, CN II-XII grossly intact Psychiatric exam: PRESENT: anxious, depressed Skin exam: PRESENT: dry, intact, warm. ABSENT: cyanosis, rash Results Laboratory Results: 11/05/16 06:47 11/06/16 09:32 11/06/16 09:32 Sodium 143.1 Potassium 4.3 Chloride 111 H Carbon Dioxide 21 L Anion Gap 11 BUN 60 H Creatinine 1.37 H Est GFR ( Amer) 45 L Est GFR (Non-Af Amer) 37 L Glucose 147 H Calcium 9.7 Impressions: Chest X-Ray 11/04/16 18:09 IMPRESSION: HEART ENLARGED WITHOUT FAILURE. NO OTHER SIGNIFICANT RADIOGRAPHIC FINDING IN THE CHEST. Head CT 11/04/16 18:09 IMPRESSION: CHRONIC CHANGES OF ATROPHY AND MICROVASCULAR ISCHEMIA. NO ACUTE PROCESS. Knee X-Ray 11/04/16 18:09 IMPRESSION: INTACT KNEE PROSTHESIS. NO ACUTE FINDINGS. Assessment & Plan - Diagnosis (1) Acute encephalopathy Is this a current diagnosis for this admission?: Yes Plan: Baseline dementia exacerbated by UTI. Resolving (2) Diabetes mellitus type 1 Qualifiers: Diabetes mellitus complication status: without complication Qualified Code( s): E10.9 - Type 1 diabetes mellitus without complications Is this a current diagnosis for this admission?: Yes (3) Dementia Qualifiers: Dementia type: unspecified type Dementia behavioral disturbance: without behavioral disturbance Qualified Code(s): F03.90 - Unspecified dementia without behavioral disturbance Is this a current diagnosis for this admission?: Yes (4) Acute on chronic renal failure Is this a current diagnosis for this admission?: Yes Plan: Improving with hydration. Undelying CKD III (5) Hypokalemia Is this a current diagnosis for this admission?: Yes Plan: Replete and monitor (6) UTI (urinary tract infection) Qualifiers: Urinary tract infection type: site unspecified Is this a current diagnosis for this admission?: Yes Plan: Continue broad spectrum antibiotics monitor cultures (7) Constipation Qualifiers: Constipation type: unspecified constipation type Qualified Code(s): K59.00 - Constipation, unspecified Is this a current diagnosis for this admission?: Yes Plan: Continue cathartics (8) Atrial fibrillation Qualifiers: Atrial fibrillation type: chronic Qualified Code(s): I48.2 - Chronic atrial fibrillation Is this a current diagnosis for this admission?: Yes Plan: Rate controlled on Warfarin. Subtherapeutic will increase dose and monitor - Time Time Spent with patient: 25-34 minutes Critical Time spent with patient: 15-24 minutes Medications reviewed and adjusted accordingly: Yes Anticipated discharge: Acute Rehab Within: when bed available
[2016-11-06] MEDS: CEFUROXIME 250 MG TABLET PO SCH (18:35)
[2016-11-06] MEDS: WARFARIN SODIUM 7.5 MG TABLET PO SCH (22:54)
[2016-11-07] MEDS: HYDRALAZINE HCL 50 MG TABLET PO SCH ×3 (06:26→22:34)
[2016-11-07 06:43] LABS: PROTHROMBIN TIME 23.2 SEC (11.4-15.4)
[2016-11-07 06:54] LABS: ANION GAP 12 (5-19); BLOOD UREA NITROGEN 55 mg/dL (7-20); CALCIUM 9.8 mg/dL (8.4-10.2); CARBON DIOXIDE 20 mmol/L (22-30); CHLORIDE 111 mmol/L (98-107); CREATININE RESULT 1.24 mg/dL (0.52-1.25); GLUCOSE 138 mg/dL (75-110); POTASSIUM 4.7 mmol/L (3.6-5.0); SODIUM 143.3 mmol/L (137-145)
[2016-11-07] MEDS: TRAMADOL HCL 50 MG TABLET PO PRN (07:02)
[2016-11-07] MEDS: LANSOPRAZOLE 15 MG TAB.RAP.DR PO SCH (07:49)
[2016-11-07] MEDS: DOCUSATE SODIUM 100 MG CAPSULE PO SCH ×2 (10:13→17:23)
[2016-11-07] MEDS: CEFUROXIME 250 MG TABLET PO SCH ×2 (10:13→17:23)
[2016-11-07] MEDS: CITALOPRAM HYDROBROMIDE 20 MG TABLET PO SCH (10:13)
[2016-11-07] MEDS: CHOLECALCIFEROL (D3) 1,000 UNIT TABLET PO SCH (10:13)
[2016-11-07] MEDS: ISOSORBIDE MONONITRATE 60 MG TAB.ER.24H PO SCH (10:13)
[2016-11-07] MEDS: LIDOCAINE 5% (700 MG) TRANSDERMAL ADH..PATCH TP SCH (10:15)
[2016-11-07] MEDS: AMLODIPINE BESYLATE 10 MG TABLET PO SCH (10:15)
[2016-11-07] MEDS: MEMANTINE HCL 10 MG TABLET PO SCH ×2 (10:23→22:32)
[2016-11-07] MEDS: METOPROLOL TARTRATE 50 MG TABLET PO SCH ×2 (10:29→22:33)
--- NOTE | 2016-11-07 12:27 | PDOC PROGRESS REPORT ---
Subjective Progress Note for:: 11/07/16 Subjective:: Patient chronically cries according to the family. Likewise there is chronic pain on the lower extremities from peripheral vascular disease. Had a remote fall contributing to the aches and pain. No reported fracture. Otherwise oral intake is good, no reported respiratory distress nor temperature spikes nor diarrhea. Physical Exam Vital Signs: Temp Pulse Resp BP Pulse Ox 97.9 F 65 14 151/68 H 93 11/07/16 11:20 11/07/16 11:20 11/07/16 11:20 11/07/16 11:20 11/07/16 11:20 Intake & Output 11/06/16 11/07/16 11/08/16 06:59 06:59 06:59 Intake Total 2495 525 Output Total 1900 Balance 2495 -1375 General appearance: PRESENT: no acute distress, obese Head exam: PRESENT: normocephalic Eye exam: PRESENT: EOMI Mouth exam: PRESENT: moist, neck supple Neck exam: ABSENT: JVD Respiratory exam: PRESENT: clear to auscultation amauri. ABSENT: rhonchi, wheezes Cardiovascular exam: PRESENT: irregular rhythm. ABSENT: gallop GI/Abdominal exam: PRESENT: soft. ABSENT: distended, tenderness Extremities exam: PRESENT: +1 edema Neurological exam: PRESENT: alert, awake Skin exam: PRESENT: dry, warm. ABSENT: cyanosis Results Laboratory Results: 11/05/16 06:47 11/07/16 06:13 11/07/16 06:13 Sodium 143.3 Potassium 4.7 Chloride 111 H Carbon Dioxide 20 L Anion Gap 12 BUN 55 H Creatinine 1.24 Est GFR ( Amer) 51 L Est GFR (Non-Af Amer) 42 L Glucose 138 H Calcium 9.8 Impressions: Chest X-Ray 11/04/16 18:09 IMPRESSION: HEART ENLARGED WITHOUT FAILURE. NO OTHER SIGNIFICANT RADIOGRAPHIC FINDING IN THE CHEST. Head CT 11/04/16 18:09 IMPRESSION: CHRONIC CHANGES OF ATROPHY AND MICROVASCULAR ISCHEMIA. NO ACUTE PROCESS. Knee X-Ray 11/04/16 18:09 IMPRESSION: INTACT KNEE PROSTHESIS. NO ACUTE FINDINGS. Assessment & Plan - Diagnosis (1) Acute encephalopathy Is this a current diagnosis for this admission?: Yes (2) Acute on chronic renal failure Qualifiers: Acute renal failure type: unspecified Chronic kidney disease stage: stage 3 (moderate) Qualified Code(s): N17.9 - Acute kidney failure, unspecified; N18.3 - Chronic kidney disease, stage 3 (moderate) Is this a current diagnosis for this admission?: Yes (3) Atrial fibrillation Qualifiers: Atrial fibrillation type: chronic Qualified Code(s): I48.2 - Chronic atrial fibrillation Is this a current diagnosis for this admission?: Yes (4) Dementia Qualifiers: Dementia type: unspecified type Dementia behavioral disturbance: without behavioral disturbance Qualified Code(s): F03.90 - Unspecified dementia without behavioral disturbance Is this a current diagnosis for this admission?: Yes (5) Diabetes mellitus type 1 Qualifiers: Diabetes mellitus complication status: without complication Qualified Code( s): E10.9 - Type 1 diabetes mellitus without complications Is this a current diagnosis for this admission?: Yes (6) UTI (urinary tract infection) Qualifiers: Urinary tract infection type: site unspecified Is this a current diagnosis for this admission?: Yes (7) Ambulatory dysfunction Is this a current diagnosis for this admission?: Yes (8) Anemia of chronic disease Is this a current diagnosis for this admission?: Yes - Time Time Spent with patient: 25-34 minutes - Plan Summary Plan Summary: We will try the patient on scheduled Flexeril. We will check a KUB for impaction. Continue antibiotics. Continue physical therapy. [facility].
--- NOTE | 2016-11-07 13:07 | RADIOLOGY REPORT (SQ) ---
EXAM DESCRIPTION: KUB/ABDOMEN (SINGLE VIEW) COMPLETED DATE/TIME: 11/07/2016 12:54 pm REASON FOR STUDY: impaction COMPARISON: CT abdomen pelvis 02/15/2016 NUMBER OF VIEWS: One view. TECHNIQUE: Supine radiographic image of the abdomen acquired. LIMITATIONS: None. FINDINGS: BOWEL GAS PATTERN: Moderate stool in the ascending colon. Remainder the colon is decompre ssed. Air in redundant sigmoid colon protruding up out of the pelvis to about the L3 level. No dila zaida small bowel loops worrisome for small bowel obstruction. CALCIFICATIONS: No suspicious calcifications. 1 cm calcification in the pelvic [place] [address] from SOFT TISSUES: No gross mass or suggestion of organomegaly. HARDWARE: Clips right upper quadrant post cholecystectomy. L3-4 lumbar fusion hardware. BONES: Osteoporotic OTHER: Heavily calcified abdominal aorta and iliac vessels IMPRESSION: No plain film evidence of fecal impaction. TECHNICAL DOCUMENTATION: JOB ID: [id number] [employer]- All Rights Reserved
[2016-11-07] MEDS: PHARMACY COMMUNICATION ORDER MC SCH (22:00)
[2016-11-07] MEDS: WARFARIN SODIUM 7.5 MG TABLET PO SCH (22:33)
[2016-11-07] MEDS: CYCLOBENZAPRINE HCL 10 MG TABLET PO SCH (22:34)
[2016-11-07] MEDS: INSULIN GLARGINE,HUM.REC.ANLOG 300 UNIT/3 ML INSULN.PEN SUBCUT SCH (22:34)
[2016-11-08 06:30] LABS: PROTHROMBIN TIME 27.8 SEC (11.4-15.4)
[2016-11-08] MEDS: HYDRALAZINE HCL 50 MG TABLET PO SCH ×3 (06:44→22:34)
[2016-11-08] MEDS: PHARMACY COMMUNICATION ORDER MC SCH ×2 (07:46→22:35)
[2016-11-08] MEDS: LIDOCAINE 5% (700 MG) TRANSDERMAL ADH..PATCH TP SCH (11:43)
[2016-11-08] MEDS: CEFUROXIME 250 MG TABLET PO SCH ×2 (11:43→17:55)
[2016-11-08] MEDS: CHOLECALCIFEROL (D3) 1,000 UNIT TABLET PO SCH (11:44)
[2016-11-08] MEDS: DOCUSATE SODIUM 100 MG CAPSULE PO SCH ×2 (11:44→17:55)
[2016-11-08] MEDS: CYCLOBENZAPRINE HCL 10 MG TABLET PO SCH ×2 (11:44→22:33)
[2016-11-08] MEDS: MEMANTINE HCL 10 MG TABLET PO SCH ×2 (11:53→22:34)
[2016-11-08] MEDS: CITALOPRAM HYDROBROMIDE 20 MG TABLET PO SCH (11:53)
[2016-11-08] MEDS: LANSOPRAZOLE 15 MG TAB.RAP.DR PO SCH (11:53)
[2016-11-08] MEDS: AMLODIPINE BESYLATE 10 MG TABLET PO SCH (11:53)
[2016-11-08] MEDS: METOPROLOL TARTRATE 50 MG TABLET PO SCH ×2 (11:54→22:34)
[2016-11-08] MEDS: ISOSORBIDE MONONITRATE 60 MG TAB.ER.24H PO SCH (11:54)
[2016-11-08] MEDS ORDERED: WARFARIN SODIUM 7.5 MG TABLET PO SCH (14:18)
--- NOTE | 2016-11-08 14:24 | PDOC PROGRESS REPORT ---
Subjective Progress Note for:: 11/08/16 Subjective:: No noted acute distress. Patient cries intermittently, no temp spikes, nausea, vomiting, chills, fever. Physical Exam Vital Signs: Temp Pulse Resp BP Pulse Ox 98.2 F 103 H 16 160/56 H 94 11/08/16 12:00 11/08/16 12:00 11/08/16 12:00 11/08/16 12:00 11/08/16 12:00 Intake & Output 11/07/16 11/08/16 11/09/16 06:59 06:59 06:59 Intake Total 525 320 Output Total 1900 Balance -1375 320 General appearance: PRESENT: no acute distress Head exam: PRESENT: normocephalic Eye exam: PRESENT: EOMI Mouth exam: PRESENT: moist, neck supple Neck exam: ABSENT: JVD Respiratory exam: PRESENT: clear to auscultation amauri Cardiovascular exam: PRESENT: RRR GI/Abdominal exam: PRESENT: soft. ABSENT: distended Extremities exam: PRESENT: other - trace lower extremity edema Neurological exam: PRESENT: alert, awake Skin exam: PRESENT: dry, warm. ABSENT: cyanosis Results Laboratory Results: 11/05/16 06:47 11/07/16 06:13 Impressions: Chest X-Ray 11/04/16 18:09 IMPRESSION: HEART ENLARGED WITHOUT FAILURE. NO OTHER SIGNIFICANT RADIOGRAPHIC FINDING IN THE CHEST. Head CT 11/04/16 18:09 IMPRESSION: CHRONIC CHANGES OF ATROPHY AND MICROVASCULAR ISCHEMIA. NO ACUTE PROCESS. Knee X-Ray 11/04/16 18:09 IMPRESSION: INTACT KNEE PROSTHESIS. NO ACUTE FINDINGS. KUB X-Ray 11/07/16 00:00 IMPRESSION: No plain film evidence of fecal impaction. Assessment & Plan - Diagnosis (1) Acute encephalopathy Is this a current diagnosis for this admission?: Yes (2) Acute on chronic renal failure Qualifiers: Acute renal failure type: unspecified Chronic kidney disease stage: stage 3 (moderate) Qualified Code(s): N17.9 - Acute kidney failure, unspecified; N18.3 - Chronic kidney disease, stage 3 (moderate) Is this a current diagnosis for this admission?: Yes (3) Atrial fibrillation Qualifiers: Atrial fibrillation type: chronic Qualified Code(s): I48.2 - Chronic atrial fibrillation Is this a current diagnosis for this admission?: Yes (4) Dementia Qualifiers: Dementia type: unspecified type Dementia behavioral disturbance: without behavioral disturbance Qualified Code(s): F03.90 - Unspecified dementia without behavioral disturbance Is this a current diagnosis for this admission?: Yes (5) Diabetes mellitus type 1 Qualifiers: Diabetes mellitus complication status: without complication Qualified Code( s): E10.9 - Type 1 diabetes mellitus without complications Is this a current diagnosis for this admission?: Yes (6) UTI (urinary tract infection) Qualifiers: Urinary tract infection type: site unspecified Is this a current diagnosis for this admission?: Yes (7) Ambulatory dysfunction Is this a current diagnosis for this admission?: Yes (8) Anemia of chronic disease Is this a current diagnosis for this admission?: Yes - Time Time Spent with patient: 15-24 minutes - Plan Summary Plan Summary: Complete antibx for 5 days. Cont. other meds and supportive care. Await Rehab bed.
[2016-11-08] MEDS: TRAMADOL HCL 50 MG TABLET PO PRN (17:55)
[2016-11-08] MEDS: WARFARIN SODIUM 2.5 MG TABLET PO SCH (22:33)
[2016-11-08] MEDS: WARFARIN SODIUM 2 MG TABLET PO SCH (22:34)
[2016-11-08] MEDS: INSULIN GLARGINE,HUM.REC.ANLOG 300 UNIT/3 ML INSULN.PEN SUBCUT SCH (22:34)
[2016-11-09] MEDS: ALPRAZOLAM 0.5 MG TABLET PO PRN ×3 (03:32→21:35)
[2016-11-09] MEDS: HYDRALAZINE HCL 50 MG TABLET PO SCH ×3 (06:04→21:34)
[2016-11-09] MEDS: PHARMACY COMMUNICATION ORDER MC SCH (07:49)
[2016-11-09] MEDS: LANSOPRAZOLE 15 MG TAB.RAP.DR PO SCH (10:25)
[2016-11-09] MEDS: MEMANTINE HCL 10 MG TABLET PO SCH ×2 (10:53→22:37)
[2016-11-09] MEDS: CHOLECALCIFEROL (D3) 1,000 UNIT TABLET PO SCH (10:53)
[2016-11-09] MEDS: DOCUSATE SODIUM 100 MG CAPSULE PO SCH ×2 (10:54→18:36)
[2016-11-09] MEDS: CYCLOBENZAPRINE HCL 10 MG TABLET PO SCH ×2 (10:55→22:37)
[2016-11-09] MEDS: CITALOPRAM HYDROBROMIDE 20 MG TABLET PO SCH (10:55)
[2016-11-09] MEDS: ISOSORBIDE MONONITRATE 60 MG TAB.ER.24H PO SCH ×2 (10:55→18:36)
[2016-11-09] MEDS: AMLODIPINE BESYLATE 10 MG TABLET PO SCH (11:00)
[2016-11-09] MEDS: LIDOCAINE 5% (700 MG) TRANSDERMAL ADH..PATCH TP SCH (11:01)
[2016-11-09] MEDS: CEFUROXIME 250 MG TABLET PO SCH ×2 (11:01→18:36)
[2016-11-09] MEDS: METOPROLOL TARTRATE 50 MG TABLET PO SCH ×2 (11:02→22:37)
--- NOTE | 2016-11-09 11:05 | PDOC PROGRESS REPORT ---
Subjective Progress Note for:: 11/09/16 Subjective:: Patient is more awake and alert. Eating well. No reported temp spikes, diarrhea , N/V, chills nor fever. No agitation or restlessness. Physical Exam Vital Signs: Temp Pulse Resp BP Pulse Ox 97.7 F 76 18 179/76 H 97 11/09/16 08:05 11/09/16 08:05 11/09/16 08:05 11/09/16 08:05 11/09/16 08:05 Intake & Output 11/08/16 11/09/16 11/10/16 06:59 06:59 06:59 Intake Total 320 356 Balance 320 356 Weight 74.9 kg General appearance: PRESENT: no acute distress, cooperative Head exam: PRESENT: normocephalic Eye exam: PRESENT: EOMI Mouth exam: PRESENT: moist, neck supple Neck exam: ABSENT: JVD Respiratory exam: PRESENT: clear to auscultation amauri Cardiovascular exam: PRESENT: RRR. ABSENT: gallop GI/Abdominal exam: PRESENT: normal bowel sounds, soft. ABSENT: distended Extremities exam: ABSENT: pedal edema Neurological exam: PRESENT: alert, awake Skin exam: PRESENT: dry, warm. ABSENT: cyanosis Results Laboratory Results: 11/05/16 06:47 11/07/16 06:13 Impressions: Chest X-Ray 11/04/16 18:09 IMPRESSION: HEART ENLARGED WITHOUT FAILURE. NO OTHER SIGNIFICANT RADIOGRAPHIC FINDING IN THE CHEST. Head CT 11/04/16 18:09 IMPRESSION: CHRONIC CHANGES OF ATROPHY AND MICROVASCULAR ISCHEMIA. NO ACUTE PROCESS. Knee X-Ray 11/04/16 18:09 IMPRESSION: INTACT KNEE PROSTHESIS. NO ACUTE FINDINGS. KUB X-Ray 11/07/16 00:00 IMPRESSION: No plain film evidence of fecal impaction. Assessment & Plan - Diagnosis (1) Acute encephalopathy Is this a current diagnosis for this admission?: Yes (2) Acute on chronic renal failure Qualifiers: Acute renal failure type: unspecified Chronic kidney disease stage: stage 3 (moderate) Qualified Code(s): N17.9 - Acute kidney failure, unspecified; N18.3 - Chronic kidney disease, stage 3 (moderate) Is this a current diagnosis for this admission?: Yes (3) Atrial fibrillation Qualifiers: Atrial fibrillation type: chronic Qualified Code(s): I48.2 - Chronic atrial fibrillation Is this a current diagnosis for this admission?: Yes (4) Dementia Qualifiers: Dementia type: unspecified type Dementia behavioral disturbance: without behavioral disturbance Qualified Code(s): F03.90 - Unspecified dementia without behavioral disturbance Is this a current diagnosis for this admission?: Yes (5) Diabetes mellitus type 1 Qualifiers: Diabetes mellitus complication status: without complication Qualified Code( s): E10.9 - Type 1 diabetes mellitus without complications Is this a current diagnosis for this admission?: Yes (6) UTI (urinary tract infection) Qualifiers: Urinary tract infection type: site unspecified Is this a current diagnosis for this admission?: Yes (7) Ambulatory dysfunction Is this a current diagnosis for this admission?: Yes (8) Anemia of chronic disease Is this a current diagnosis for this admission?: Yes - Time Time Spent with patient: 15-24 minutes - Plan Summary Plan Summary: We are going to increase imdur. Cont. other anti-hypertensive meds. Cont. antibx total of 5 days. Awaiting rehab bed.
[2016-11-09] MEDS: ACETAMINOPHEN 325 MG TABLET PO PRN (11:30)
[2016-11-09] MEDS: WARFARIN SODIUM 2.5 MG TABLET PO SCH (22:44)
[2016-11-09] MEDS: WARFARIN SODIUM 2 MG TABLET PO SCH (22:44)
[2016-11-09] MEDS: INSULIN GLARGINE,HUM.REC.ANLOG 300 UNIT/3 ML INSULN.PEN SUBCUT SCH (22:51)
[2016-11-10] MEDS ORDERED: MEMANTINE HCL 10 MG TABLET PO ONE (01:45)
[2016-11-10] MEDS ORDERED: METOPROLOL TARTRATE 50 MG TABLET PO ONE ×2 (01:45)
[2016-11-10] MEDS ORDERED: CYCLOBENZAPRINE HCL 10 MG TABLET PO ONE (01:45)
[2016-11-10] MEDS ORDERED: WARFARIN SODIUM 2.5 MG TABLET PO ONE (01:45)
[2016-11-10] MEDS ORDERED: WARFARIN SODIUM 2 MG TABLET PO ONE (01:45)
[2016-11-10] MEDS: HYDRALAZINE HCL 50 MG TABLET PO SCH ×3 (05:26→23:18)
[2016-11-10] MEDS: PHARMACY COMMUNICATION ORDER MC SCH (08:04)
[2016-11-10] MEDS: AMLODIPINE BESYLATE 10 MG TABLET PO SCH (08:36)
[2016-11-10] MEDS: LANSOPRAZOLE 15 MG TAB.RAP.DR PO SCH (08:37)
[2016-11-10] MEDS: METOPROLOL TARTRATE 50 MG TABLET PO SCH (08:37)
[2016-11-10 09:42] LABS: PROTHROMBIN TIME 33.9 SEC (11.4-15.4)
[2016-11-10] MEDS: CYCLOBENZAPRINE HCL 10 MG TABLET PO SCH ×2 (11:00→23:18)
[2016-11-10] MEDS: DOCUSATE SODIUM 100 MG CAPSULE PO SCH ×2 (11:01→17:56)
[2016-11-10] MEDS: CITALOPRAM HYDROBROMIDE 20 MG TABLET PO SCH (11:01)
[2016-11-10] MEDS: CHOLECALCIFEROL (D3) 1,000 UNIT TABLET PO SCH (11:01)
[2016-11-10] MEDS: MEMANTINE HCL 10 MG TABLET PO SCH ×2 (11:01→23:18)
[2016-11-10] MEDS: CEFUROXIME 250 MG TABLET PO SCH (11:02)
[2016-11-10] MEDS: LIDOCAINE 5% (700 MG) TRANSDERMAL ADH..PATCH TP SCH (11:03)
[2016-11-10] MEDS: ISOSORBIDE MONONITRATE 60 MG TAB.ER.24H PO SCH ×2 (11:07→17:59)
--- NOTE | 2016-11-10 15:59 | PDOC PROGRESS REPORT ---
Subjective Progress Note for:: 11/10/16 Subjective:: No reported respiratory distress temperature spikes or agitation. No diarrhea nausea or vomiting. Oral intake is fair. No reported discomfort at this time. Reported bradycardia at times. Physical Exam Vital Signs: Temp Pulse Resp BP Pulse Ox 97.7 F 49 L 16 161/63 H 97 11/10/16 11:50 11/10/16 11:50 11/10/16 11:50 11/10/16 11:50 11/10/16 11:50 Intake & Output 11/09/16 11/10/16 11/11/16 06:59 06:59 06:59 Intake Total 356 1061 Balance 356 1061 Weight 74.9 kg 73.3 kg General appearance: PRESENT: no acute distress, cooperative Head exam: PRESENT: normocephalic Eye exam: PRESENT: EOMI Mouth exam: PRESENT: moist, neck supple Neck exam: ABSENT: JVD Respiratory exam: PRESENT: clear to auscultation amauri. ABSENT: rhonchi, wheezes Cardiovascular exam: PRESENT: RRR. ABSENT: gallop GI/Abdominal exam: PRESENT: soft. ABSENT: distended, tenderness Extremities exam: PRESENT: other - Trace lower extremity edema, bilateral, lower extremity edema hypersensitivity. Neurological exam: PRESENT: alert, awake Skin exam: PRESENT: dry, warm. ABSENT: cyanosis Results Laboratory Results: 11/05/16 06:47 11/07/16 06:13 11/04/16 22:20 Blood Blood Culture - Final NO GROWTH IN 5 DAYS Impressions: Chest X-Ray 11/04/16 18:09 IMPRESSION: HEART ENLARGED WITHOUT FAILURE. NO OTHER SIGNIFICANT RADIOGRAPHIC FINDING IN THE CHEST. Head CT 11/04/16 18:09 IMPRESSION: CHRONIC CHANGES OF ATROPHY AND MICROVASCULAR ISCHEMIA. NO ACUTE PROCESS. Knee X-Ray 11/04/16 18:09 IMPRESSION: INTACT KNEE PROSTHESIS. NO ACUTE FINDINGS. KUB X-Ray 11/07/16 00:00 IMPRESSION: No plain film evidence of fecal impaction. Assessment & Plan - Diagnosis (1) Acute encephalopathy Is this a current diagnosis for this admission?: Yes (2) Acute on chronic renal failure Qualifiers: Acute renal failure type: unspecified Chronic kidney disease stage: stage 3 (moderate) Qualified Code(s): N17.9 - Acute kidney failure, unspecified; N18.3 - Chronic kidney disease, stage 3 (moderate) Is this a current diagnosis for this admission?: Yes (3) Atrial fibrillation Qualifiers: Atrial fibrillation type: chronic Qualified Code(s): I48.2 - Chronic atrial fibrillation Is this a current diagnosis for this admission?: Yes (4) Dementia Qualifiers: Dementia type: unspecified type Dementia behavioral disturbance: without behavioral disturbance Qualified Code(s): F03.90 - Unspecified dementia without behavioral disturbance Is this a current diagnosis for this admission?: Yes (5) Diabetes mellitus type 1 Qualifiers: Diabetes mellitus complication status: without complication Qualified Code( s): E10.9 - Type 1 diabetes mellitus without complications Is this a current diagnosis for this admission?: Yes (6) UTI (urinary tract infection) Qualifiers: Urinary tract infection type: site unspecified Is this a current diagnosis for this admission?: Yes (7) Ambulatory dysfunction Is this a current diagnosis for this admission?: Yes (8) Anemia of chronic disease Is this a current diagnosis for this admission?: Yes - Time Time Spent with patient: 25-34 minutes - Plan Summary Plan Summary: Decrease metoprolol dose. We will hold today's warfarin and recheck PT/INR in the morning. Patient completed treatment for urinary tract infection we will discontinue antibiotic. Awaiting subacute rehabilitation bed for physical therapy.
[2016-11-10] MEDS: TRAMADOL HCL 50 MG TABLET PO PRN (18:42)
[2016-11-10] MEDS: INSULIN GLARGINE,HUM.REC.ANLOG 300 UNIT/3 ML INSULN.PEN SUBCUT SCH (23:19)
[2016-11-10] MEDS: METOPROLOL TARTRATE 25 MG TABLET PO SCH (23:21)
[2016-11-11 05:03] LABS: PROTHROMBIN TIME 34.7 SEC (11.4-15.4)
[2016-11-11] MEDS: HYDRALAZINE HCL 50 MG TABLET PO SCH ×3 (07:09→22:07)
--- NOTE | 2016-11-11 12:40 | PDOC PROGRESS REPORT ---
Subjective Progress Note for:: 11/11/16 Subjective:: Is confused but denies any complaints. Physical Exam Vital Signs: Temp Pulse Resp BP Pulse Ox 97.5 F 56 L 14 174/71 H 100 11/11/16 05:34 11/11/16 05:34 11/11/16 05:34 11/11/16 05:34 11/11/16 05:34 Intake & Output 11/10/16 11/11/16 11/12/16 06:59 06:59 06:59 Intake Total 1061 1215 Output Total 1 Balance 1061 1214 Weight 73.3 kg 73.9 kg General appearance: PRESENT: no acute distress Eye exam: PRESENT: conjunctiva pink. ABSENT: scleral icterus Mouth exam: PRESENT: moist, tongue midline Neck exam: ABSENT: JVD Respiratory exam: PRESENT: clear to auscultation amauri. ABSENT: rales, rhonchi, wheezes Cardiovascular exam: PRESENT: RRR, systolic murmur - 3/6. ABSENT: diastolic murmur, rubs GI/Abdominal exam: PRESENT: normal bowel sounds, soft. ABSENT: distended, guarding, mass, organolmegaly, rebound, tenderness Extremities exam: ABSENT: calf tenderness, clubbing, pedal edema Neurological exam: PRESENT: alert, awake, oriented to person, CN II-XII grossly intact. ABSENT: oriented to place, oriented to time, oriented to situation, motor sensory deficit Psychiatric exam: PRESENT: flat affect Skin exam: PRESENT: dry, intact, warm. ABSENT: cyanosis, rash Results Laboratory Results: 11/05/16 06:47 11/07/16 06:13 Impressions: Chest X-Ray 11/04/16 18:09 IMPRESSION: HEART ENLARGED WITHOUT FAILURE. NO OTHER SIGNIFICANT RADIOGRAPHIC FINDING IN THE CHEST. Head CT 11/04/16 18:09 IMPRESSION: CHRONIC CHANGES OF ATROPHY AND MICROVASCULAR ISCHEMIA. NO ACUTE PROCESS. Knee X-Ray 11/04/16 18:09 IMPRESSION: INTACT KNEE PROSTHESIS. NO ACUTE FINDINGS. KUB X-Ray 11/07/16 00:00 IMPRESSION: No plain film evidence of fecal impaction. Assessment & Plan - Diagnosis (1) Acute encephalopathy Is this a current diagnosis for this admission?: Yes Plan: Is felt to be secondary to the urinary tract infection. She has improved however she is still demented. (2) Atrial fibrillation Qualifiers: Atrial fibrillation type: chronic Qualified Code(s): I48.2 - Chronic atrial fibrillation Is this a current diagnosis for this admission?: Yes Plan: Is rate controlled. (3) Dementia Qualifiers: Dementia type: unspecified type Dementia behavioral disturbance: without behavioral disturbance Qualified Code(s): F03.90 - Unspecified dementia without behavioral disturbance Is this a current diagnosis for this admission?: Yes (4) Diabetes mellitus type 1 Qualifiers: Diabetes mellitus complication status: without complication Qualified Code( s): E10.9 - Type 1 diabetes mellitus without complications Is this a current diagnosis for this admission?: Yes Plan: continue with Lantus and sliding scale insulin. (5) UTI (urinary tract infection) Qualifiers: Urinary tract infection type: site unspecified Is this a current diagnosis for this admission?: Yes Plan: Has completed a course of Ceftin for E. coli urinary tract infection. (6) Acute on chronic renal failure Qualifiers: Acute renal failure type: unspecified Chronic kidney disease stage: stage 3 (moderate) Qualified Code(s): N17.9 - Acute kidney failure, unspecified; N18.3 - Chronic kidney disease, stage 3 (moderate) Is this a current diagnosis for this admission?: Yes Plan: Creatinine has returned to normal. (7) Anemia of chronic disease Is this a current diagnosis for this admission?: Yes (8) Coronary artery disease Is this a current diagnosis for this admission?: Yes Plan: Denies any chest pain. (9) Diastolic CHF Qualifiers: Congestive heart failure chronicity: chronic Qualified Code(s): I50.32 - Chronic diastolic (congestive) heart failure Is this a current diagnosis for this admission?: Yes Plan: Patient is euvolemic. (10) Hypertension Qualifiers: Hypertension type: essential hypertension Qualified Code(s): I10 - Essential (primary) hypertension Is this a current diagnosis for this admission?: Yes (11) Anticoagulated on Coumadin Is this a current diagnosis for this admission?: Yes Plan: INR 3.25 today. (12) Pulmonary HTN Is this a current diagnosis for this admission?: Yes - Time Time Spent with patient: 25-34 minutes - Inpatient Certification Medical Necessity: Need Close Monitoring Due to Risk of Patient Decompensation - Plan Summary Plan Summary: Will be transferred to skilled nurse facility when bed becomes available.
[2016-11-11] MEDS: ISOSORBIDE MONONITRATE 60 MG TAB.ER.24H PO SCH ×2 (12:49→18:27)
[2016-11-11] MEDS: MEMANTINE HCL 10 MG TABLET PO SCH ×2 (12:49→22:07)
[2016-11-11] MEDS: DOCUSATE SODIUM 100 MG CAPSULE PO SCH ×2 (12:49→18:27)
[2016-11-11] MEDS: CITALOPRAM HYDROBROMIDE 20 MG TABLET PO SCH (12:50)
[2016-11-11] MEDS: CHOLECALCIFEROL (D3) 1,000 UNIT TABLET PO SCH (12:50)
[2016-11-11] MEDS: CYCLOBENZAPRINE HCL 10 MG TABLET PO SCH ×2 (12:50→22:07)
[2016-11-11] MEDS: AMLODIPINE BESYLATE 10 MG TABLET PO SCH (12:50)
[2016-11-11] MEDS: LANSOPRAZOLE 15 MG TAB.RAP.DR PO SCH (12:51)
[2016-11-11] MEDS: LIDOCAINE 5% (700 MG) TRANSDERMAL ADH..PATCH TP SCH (12:52)
[2016-11-11] MEDS: METOPROLOL TARTRATE 25 MG TABLET PO SCH ×2 (12:52→22:09)
[2016-11-11] MEDS: PHARMACY COMMUNICATION ORDER MC SCH ×2 (12:52→22:00)
[2016-11-11] MEDS: INSULIN GLARGINE,HUM.REC.ANLOG 300 UNIT/3 ML INSULN.PEN SUBCUT SCH (22:09)
[2016-11-12 06:20] LABS: ABSOLUTE BASOPHILS # (AUTO) 0.1 10^3/uL (0.0-0.2); ABSOLUTE EOSINOPHILS # (AUTO) 0.2 10^3/uL (0.0-0.6); ABSOLUTE LYMPHOCYTES (AUTO) 0.7 10^3/uL (0.5-4.7); ABSOLUTE MONOCYTES (AUTO) 0.4 10^3/uL (0.1-1.4); ABSOLUTE NEUT (AUTO) 4.6 10^3/uL (1.7-8.2); BASOPHILS % (AUTO) 1.2 % (0-2); EOSINOPHILS % (AUTO) 3.5 % (0-6); HEMOGLOBIN 12.1 g/dL (12.0-15.5); HGB HCT DIFFERENCE -0.7; LYMPHOCYTES % (AUTO) 12.4 % (13-45); MEAN CORPUSCULAR HEMOGLOBIN 28.5 pg (27.0-33.4); MEAN CORPUSCULAR HGB CONC 32.8 g/dL (32.0-36.0); MEAN CORPUSCULAR VOLUME 87 fl (80-97); MONOCYTES % (AUTO) 6.6 % (3-13); RED BLOOD COUNT 4.25 10^6/uL (3.72-5.28); RED CELL DISTRIBUTION WIDTH 15.3 % (11.5-14.0); SEGMENTED NEUTROPHILS % (AUTO) 76.3 % (42-78)
[2016-11-12 06:29] LABS: ANION GAP 11 (5-19); BLOOD UREA NITROGEN 58 mg/dL (7-20); CALCIUM 9.7 mg/dL (8.4-10.2); CARBON DIOXIDE 21 mmol/L (22-30); CHLORIDE 110 mmol/L (98-107); CREATININE RESULT 1.36 mg/dL (0.52-1.25); GLUCOSE 89 mg/dL (75-110); POTASSIUM 4.3 mmol/L (3.6-5.0); SODIUM 142.3 mmol/L (137-145)
[2016-11-12] MEDS: HYDRALAZINE HCL 50 MG TABLET PO SCH ×3 (07:04→22:30)
[2016-11-12] MEDS ORDERED: LACTULOSE SYRUP 20 GM/30 ML UDCUP PO PRN (10:15)
[2016-11-12] MEDS: LANSOPRAZOLE 15 MG TAB.RAP.DR PO SCH (11:40)
[2016-11-12] MEDS: CYCLOBENZAPRINE HCL 10 MG TABLET PO SCH ×2 (11:40→22:31)
[2016-11-12] MEDS: CHOLECALCIFEROL (D3) 1,000 UNIT TABLET PO SCH (11:40)
[2016-11-12] MEDS: MEMANTINE HCL 10 MG TABLET PO SCH ×2 (11:41→22:30)
[2016-11-12] MEDS: DOCUSATE SODIUM 100 MG CAPSULE PO SCH ×2 (11:41→16:23)
[2016-11-12] MEDS: ISOSORBIDE MONONITRATE 60 MG TAB.ER.24H PO SCH ×2 (11:41→16:23)
[2016-11-12] MEDS: AMLODIPINE BESYLATE 10 MG TABLET PO SCH (11:41)
[2016-11-12] MEDS: CITALOPRAM HYDROBROMIDE 20 MG TABLET PO SCH (11:42)
[2016-11-12] MEDS: LIDOCAINE 5% (700 MG) TRANSDERMAL ADH..PATCH TP SCH (11:43)
[2016-11-12] MEDS: METOPROLOL TARTRATE 25 MG TABLET PO SCH ×2 (11:43→23:57)
--- NOTE | 2016-11-12 11:45 | PDOC PROGRESS REPORT ---
Subjective Progress Note for:: 11/12/16 Subjective:: Is confused but denies any complaints. Physical Exam Vital Signs: Temp Pulse Resp BP Pulse Ox 98.2 F 74 16 164/70 H 98 11/12/16 07:40 11/12/16 07:40 11/12/16 07:40 11/12/16 07:40 11/12/16 07:40 Intake & Output 11/11/16 11/12/16 11/13/16 06:59 06:59 06:59 Intake Total 1215 627 Output Total 1 0 Balance 1214 627 Weight 73.9 kg 74.4 kg General appearance: PRESENT: no acute distress Eye exam: PRESENT: conjunctiva pink. ABSENT: scleral icterus Ear exam: PRESENT: normal external ear exam Mouth exam: PRESENT: moist, tongue midline Neck exam: ABSENT: JVD Respiratory exam: PRESENT: clear to auscultation amauri. ABSENT: rales, rhonchi, wheezes Cardiovascular exam: PRESENT: RRR, systolic murmur - 3/6 systolic murmur.. ABSENT: diastolic murmur, rubs GI/Abdominal exam: PRESENT: normal bowel sounds, soft. ABSENT: distended, guarding, mass, organolmegaly, rebound, tenderness Extremities exam: ABSENT: calf tenderness, clubbing, pedal edema Neurological exam: PRESENT: awake, oriented to person. ABSENT: oriented to place, oriented to time, oriented to situation Psychiatric exam: PRESENT: flat affect Skin exam: PRESENT: dry, intact, warm. ABSENT: cyanosis, rash Results Laboratory Results: 11/12/16 06:00 11/12/16 06:00 11/12/16 11/12/16 06:00 06:00 WBC 6.0 RBC 4.25 Hgb 12.1 Hct 37.0 MCV 87 MCH 28.5 MCHC 32.8 RDW 15.3 H Plt Count 249 Seg Neutrophils % 76.3 Lymphocytes % 12.4 L Monocytes % 6.6 Eosinophils % 3.5 Basophils % 1.2 Absolute Neutrophils 4.6 Absolute Lymphocytes 0.7 Absolute Monocytes 0.4 Absolute Eosinophils 0.2 Absolute Basophils 0.1 Sodium 142.3 Potassium 4.3 Chloride 110 H Carbon Dioxide 21 L Anion Gap 11 BUN 58 H Creatinine 1.36 H Est GFR ( Amer) 46 L Est GFR (Non-Af Amer) 38 L Glucose 89 Calcium 9.7 Impressions: Chest X-Ray 11/04/16 18:09 IMPRESSION: HEART ENLARGED WITHOUT FAILURE. NO OTHER SIGNIFICANT RADIOGRAPHIC FINDING IN THE CHEST. Head CT 11/04/16 18:09 IMPRESSION: CHRONIC CHANGES OF ATROPHY AND MICROVASCULAR ISCHEMIA. NO ACUTE PROCESS. Knee X-Ray 11/04/16 18:09 IMPRESSION: INTACT KNEE PROSTHESIS. NO ACUTE FINDINGS. KUB X-Ray 11/07/16 00:00 IMPRESSION: No plain film evidence of fecal impaction. Assessment & Plan - Diagnosis (1) Acute encephalopathy Is this a current diagnosis for this admission?: Yes Plan: Is felt to be secondary to the urinary tract infection. She has improved however she is still demented. (2) Atrial fibrillation Qualifiers: Atrial fibrillation type: chronic Qualified Code(s): I48.2 - Chronic atrial fibrillation Is this a current diagnosis for this admission?: Yes Plan: Is rate controlled. (3) Dementia Qualifiers: Dementia type: unspecified type Dementia behavioral disturbance: without behavioral disturbance Qualified Code(s): F03.90 - Unspecified dementia without behavioral disturbance Is this a current diagnosis for this admission?: Yes (4) Diabetes mellitus type 1 Qualifiers: Diabetes mellitus complication status: without complication Qualified Code( s): E10.9 - Type 1 diabetes mellitus without complications Is this a current diagnosis for this admission?: Yes Plan: continue with Lantus and sliding scale insulin. (5) UTI (urinary tract infection) Qualifiers: Urinary tract infection type: site unspecified Is this a current diagnosis for this admission?: Yes Plan: Has completed a course of Ceftin for E. coli urinary tract infection. (6) Acute on chronic renal failure Qualifiers: Acute renal failure type: unspecified Chronic kidney disease stage: stage 3 (moderate) Qualified Code(s): N17.9 - Acute kidney failure, unspecified; N18.3 - Chronic kidney disease, stage 3 (moderate) Is this a current diagnosis for this admission?: Yes Plan: Creatinine has returned to normal. (7) Anemia of chronic disease Is this a current diagnosis for this admission?: Yes (8) Coronary artery disease Is this a current diagnosis for this admission?: Yes Plan: Denies any chest pain. (9) Diastolic CHF Qualifiers: Congestive heart failure chronicity: chronic Qualified Code(s): I50.32 - Chronic diastolic (congestive) heart failure Is this a current diagnosis for this admission?: Yes Plan: Patient is euvolemic. (10) Hypertension Qualifiers: Hypertension type: essential hypertension Qualified Code(s): I10 - Essential (primary) hypertension Is this a current diagnosis for this admission?: Yes (11) Anticoagulated on Coumadin Is this a current diagnosis for this admission?: Yes (12) Pulmonary HTN Is this a current diagnosis for this admission?: Yes - Time Time Spent with patient: 25-34 minutes - Plan Summary Plan Summary: [facility]
[2016-11-12] MEDS: WARFARIN SODIUM 2 MG TABLET PO SCH (22:31)
[2016-11-12] MEDS: WARFARIN SODIUM 2.5 MG TABLET PO SCH (22:31)
[2016-11-12] MEDS: PHARMACY COMMUNICATION ORDER MC SCH (22:32)
[2016-11-12] MEDS: INSULIN GLARGINE,HUM.REC.ANLOG 300 UNIT/3 ML INSULN.PEN SUBCUT SCH (23:57)
[2016-11-13 05:13] LABS: PROTHROMBIN TIME 26.6 SEC (11.4-15.4)
[2016-11-13] MEDS: HYDRALAZINE HCL 50 MG TABLET PO SCH ×2 (06:59→14:08)
[2016-11-13] MEDS: MEMANTINE HCL 10 MG TABLET PO SCH (10:18)
[2016-11-13] MEDS: METOPROLOL TARTRATE 25 MG TABLET PO SCH (10:18)
[2016-11-13] MEDS: CYCLOBENZAPRINE HCL 10 MG TABLET PO SCH (10:18)
[2016-11-13] MEDS: CHOLECALCIFEROL (D3) 1,000 UNIT TABLET PO SCH (10:18)
[2016-11-13] MEDS: DOCUSATE SODIUM 100 MG CAPSULE PO SCH ×2 (10:18→18:12)
[2016-11-13] MEDS: LANSOPRAZOLE 15 MG TAB.RAP.DR PO SCH (10:19)
[2016-11-13] MEDS: ISOSORBIDE MONONITRATE 60 MG TAB.ER.24H PO SCH ×2 (10:19→18:12)
[2016-11-13] MEDS: AMLODIPINE BESYLATE 10 MG TABLET PO SCH (10:19)
[2016-11-13] MEDS: CITALOPRAM HYDROBROMIDE 20 MG TABLET PO SCH (10:19)
[2016-11-13] MEDS: LIDOCAINE 5% (700 MG) TRANSDERMAL ADH..PATCH TP SCH (10:20)
--- NOTE | 2016-11-13 11:37 | PDOC TRANSFER SUMMARY ---
General - Admit/Disc Date/PCP Admission Date/Primary Care Provider: 11/04/16 21:53 Discharge Date: 11/13/16 - Discharge Diagnosis (1) Acute encephalopathy Is this a current diagnosis for this admission?: Yes Summary: Avenue to be secondary to an acute urinary tract infection. She does have dementia baseline. She is now back at her baseline mental status. (2) Atrial fibrillation Is this a current diagnosis for this admission?: Yes Summary: Currently rate controlled. She is on Coumadin for anticoagulation. (3) Dementia Is this a current diagnosis for this admission?: Yes (4) Diabetes mellitus type 1 Is this a current diagnosis for this admission?: Yes (5) UTI (urinary tract infection) Is this a current diagnosis for this admission?: Yes Summary: UTI with E. coli. Patient has completed a full course of Ceftin for treatment of this. (6) Acute on chronic renal failure Is this a current diagnosis for this admission?: Yes Summary: Avenue to be secondary to dehydration secondary to the acute urinary tract infection. Her creatinine has returned to normal. (7) Anemia of chronic disease Is this a current diagnosis for this admission?: Yes (8) Coronary artery disease Is this a current diagnosis for this admission?: Yes (9) Diastolic CHF Is this a current diagnosis for this admission?: Yes (10) Hypertension Is this a current diagnosis for this admission?: Yes (11) Anticoagulated on Coumadin Is this a current diagnosis for this admission?: Yes (12) Pulmonary HTN Is this a current diagnosis for this admission?: Yes - Additional Information Resuscitation Status: Full Code Discharge Diet: Cardiac, Diabetic Discharge Activity: Activity As Tolerated Home Medications: Amlodipine Besylate [Norvasc 10 mg Tablet] 10 mg PO DAILY 11/04/16 Cholecalciferol (Vitamin D3) [Vitamin D3 2000 unit Tablet] 2,000 units PO DAILY 11/04/16 Furosemide [Lasix 40 mg Tablet] 60 mg PO BID 11/04/16 Hydralazine HCl 100 mg PO Q8 11/04/16 Insulin Glargine,Hum.rec.anlog [Lantus Solostar] 25 units SQ QHS 11/04/16 Insulin Lispro [Humalog] See Protocol SQ AC 11/04/16 Memantine HCl 5 mg PO Q12 11/04/16 Metoprolol Tartrate [Lopressor 50 mg Tablet] 25 mg PO Q12 11/04/16 Omeprazole 20 mg PO DAILY 11/04/16 Warfarin Sodium 5 mg PO DAILY 11/04/16 Citalopram Hydrobromide [Celexa 20 mg Tablet] 20 mg PO DAILY tablet 11/13/16 Isosorbide Mononitrate [Imdur 60 mg Tablet.er] 60 mg PO BID tab.er.24h Lidocaine [Lidoderm 5% (700 mg) Transdermal Patch] 2 patch TP DAILY adh..patch 11/13/16 History of Present Illness Admission Date/PCP: 11/04/16 21:53 History of Present Illness: GEOFFREY PULIDO is a 76 year old -[place] female with known underlying dementia, along with hypertension, atrial fibrillation, on Coumadin for same, history of congestive heart failure but no evidence of same on 2016 echocardiogram report, previous heart attack, prior stroke, with no known underlying residual aftereffects, type 1 diabetes mellitus, and depression, without suicidal or homicidal ideation, who presents to the emergency room for evaluation of above complaints. Patient has been discussed with emergency room physician who evaluated the patient. Patient is oriented to the fact that she is in the hospital, not sure which one, but is not sure why she is here, and was not sure about the year. She is thus able to provide no history whatsoever in terms of acute or chronic events, review of systems, personal habits, family history, etc. , [id number], and daughter are present, with not the best historian himself. Old inpatient records are reviewed. Reportedly a 3-4 day history of decreased p.o. intake, increased confusion, and generalized weakness. Fallen twice, once getting out of the bathtub, and once in the hallway, but by report, no significant fall either time. Normally wanders in the halls at night. No fever or chills, nausea or vomiting. He has not been taking her medications over the last several days. Reportedly treated for urinary tract infection early last month, with culture results noted. not sure whether she received oral or intravenous antibiotics. Again, he is not the best historian himself. does state that patient has been passing somewhat hard dry stools lately. Patient was ambulating earlier today, pushing a wheelchair for balance. Hospital Course Hospital Course: 76-year-old female who has dementia baseline who presented with worsening of her mental status. The patient was found to have an acute urinary tract infection as the cause for her encephalopathy. The patient eventually grew out E. coli from her urine culture. The patient has completed a course of antibiotics. She has finished the Ceftin. Her mental status has improved back to its baseline. The patient however does have mild to moderate dementia at baseline. The patient is weak from the acute infection and her is very frail and is unable to care for her. She needs to go to a skilled nurse facility for rehab short-term. During this hospitalization the patient also was noted to have acute renal failure secondary to dehydration. This has resolved with IV fluids. The patient also has a history of diastolic congestive heart failure which has been stable during his hospitalization. She also has atrial fibrillation which has been rate controlled. She is on Coumadin and is therapeutic on the day of discharge. The patient's other medical problems all were stable during this hospitalization. Physical Exam Vital Signs: Temp Pulse Resp BP Pulse Ox 97.9 F 79 20 173/63 H 99 11/13/16 03:39 11/13/16 07:00 11/13/16 03:39 11/13/16 03:39 11/13/16 03:39 Intake & Output 11/12/16 11/13/16 11/14/16 06:59 06:59 06:59 Intake Total 627 663 Output Total 0 Balance 627 663 Weight 74.4 kg General appearance: PRESENT: no acute distress Eye exam: PRESENT: conjunctiva pink. ABSENT: scleral icterus Mouth exam: PRESENT: moist, tongue midline Neck exam: ABSENT: JVD Respiratory exam: PRESENT: clear to auscultation amauri. ABSENT: rales, rhonchi, wheezes Cardiovascular exam: PRESENT: irregular rhythm. ABSENT: diastolic murmur, rubs , systolic murmur GI/Abdominal exam: PRESENT: normal bowel sounds, soft. ABSENT: distended, guarding, mass, organolmegaly, rebound, tenderness Extremities exam: PRESENT: full ROM, pedal edema - Trace pedal edema. ABSENT: calf tenderness, clubbing Neurological exam: PRESENT: alert, awake, oriented to person, oriented to place , CN II-XII grossly intact. ABSENT: oriented to time, oriented to situation, motor sensory deficit Psychiatric exam: PRESENT: flat affect Skin exam: PRESENT: dry, intact, warm. ABSENT: cyanosis, rash Results Laboratory Results: 11/12/16 06:00 11/12/16 06:00 Impressions: Chest X-Ray 11/04/16 18:09 IMPRESSION: HEART ENLARGED WITHOUT FAILURE. NO OTHER SIGNIFICANT RADIOGRAPHIC FINDING IN THE CHEST. Head CT 11/04/16 18:09 IMPRESSION: CHRONIC CHANGES OF ATROPHY AND MICROVASCULAR ISCHEMIA. NO ACUTE PROCESS. Knee X-Ray 11/04/16 18:09 IMPRESSION: INTACT KNEE PROSTHESIS. NO ACUTE FINDINGS. KUB X-Ray 11/07/16 00:00 IMPRESSION: No plain film evidence of fecal impaction. Transfer Plan - Disposition Transfer Plan: Patient is to be transferred to [facility] skilled nurse facility when a bed becomes available. - Time Spent with Patient Time spent with patient: Greater than 30 Minutes Qualifiers PATEINT BEING DISCHARGED WITH ANY OF THE FOLLOWING DIAGNOSIS?: No Plan Discharge Plan: We will transfer to [facility] skilled nurse facility when a bed becomes available. Time Spent: Greater than 30 Minutes
[2016-11-13 15:59] VITALS: BP 157/58
== END 2016-11-13 20:32 | DRG 71 ==
LOC: LC 16:46 → UNDOADMIN 21:09 → EH 21:09 → 4S 23:09 → 3N 11-09 03:02
PROVIDERS: ADMIT Family Medicine; ATTEND Family Medicine
DX: G93.49 Other encephalopathy (principal); N39.0 Urinary tract infection, site not specified; N17.9 Acute kidney failure, unspecified; I13.0 Hypertensive heart and chronic kidney disease with heart failure and stage 1 through stage 4 chronic kidney disease, or unspecified chronic kidney disease; I50.32 Chronic diastolic (congestive) heart failure; F03.90 Unspecified dementia, unspecified severity, without behavioral disturbance, psychotic disturbance, mood disturbance, and anxiety; B96.20 Unspecified Escherichia coli [E. coli] as the cause of diseases classified elsewhere; E10.22 Type 1 diabetes mellitus with diabetic chronic kidney disease; N18.3 Chronic kidney disease, stage 3 (moderate); D63.1 Anemia in chronic kidney disease; E87.6 Hypokalemia; K59.00 Constipation, unspecified; I48.2 Chronic atrial fibrillation; I25.10 Atherosclerotic heart disease of native coronary artery without angina pectoris; I27.2 Other secondary pulmonary hypertension; Z79.4 Long term (current) use of insulin; Z79.01 Long term (current) use of anticoagulants; Z79.899 Other long term (current) drug therapy; Z86.73 Personal history of transient ischemic attack (TIA), and cerebral infarction without residual deficits; Z90.49 Acquired absence of other specified parts of digestive tract; Z72.0 Tobacco use; Z88.5 Allergy status to narcotic agent; Z91.018 Allergy to other foods
CPT/HCPCS: 36415; 70450; 71010; 74000; 80048; 80053; 80307; 81001; 82962; 83690; 83735; 84484; 85025; 85610; 85730; 87040; 87086; 87088; 87186; 96365; 99285; G8978-GP; G8979-GP; J0696; J1815; J3490; J7030; J7120